=== PATIENT | male | born 1965 | race Caucasian/White ===

== ENCOUNTER 2017-07-18 09:33 | Emergency (ER) | payer MEDICAID ==
[~2017-07-18] VITALS: Ht 175.3 cm; Wt 80.0 kg
[~2017-07-18 09:33] MED LIST: ALBU8HFA PO; BACLOFEN 10 MG TABLET; BUTRANS 20 MCG/HR; CHLO375T PO; CYCL10TA27 PO; FINA5TAB42 PO; FINASTERIDE 5 MG TABLET; GABA800T2 PO; HYDR-569 PO; HYDROCODONE-ACETAMIN 10-325 MG; HYDROXYZINE HCL 25 MG TABLET; IBUPROFEN 800 MG TABLET; LAMO25TA PO; LAMOTRIGINE 100 MG TABLET; LEVE10006 PO; LEVO100T9 PO; LEVOTHYROXINE 125 MCG TABLET; PAROXETINE HCL 20 MG TABLET; SPIRIVA RESPIMAT 2.5 MCG; TAMS0.4C32 PO; TAMSULOSIN HCL 0.4 MG CAPSULE; VENTOLIN HFA 90 MCG INHALER
[2017-07-18] MEDS ORDERED: BENZ-16 PO (11:49)
[2017-07-18] MEDS ORDERED: ipratropium/albuterol 3ml nebule ONE (11:58)
[2017-07-18 12:46] VITALS: BP 125/74
== END 2017-07-18 12:47 | disposition home or self-care (01) ==
LOC: ER 09:33
DX: J45.909 Unspecified asthma, uncomplicated (principal); F12.10 Cannabis abuse, uncomplicated; Z88.8 Allergy status to other drugs, medicaments and biological substances; Z88.5 Allergy status to narcotic agent; Z79.899 Other long term (current) drug therapy
CPT/HCPCS: 71046; 94640; 94760; 99284

== ENCOUNTER 2018-05-04 05:51 | Emergency (ER) | payer MEDICAID ==
[~2018-05-04] VITALS: Ht 175.3 cm; Wt 75.0 kg
[~2018-05-04 05:51] MED LIST changes: +BENZ-16 PO; +HYDR-4383 PO; -HYDR-569 PO
[2018-05-04 05:53] VITALS: BP 136/79
[2018-05-04] MEDS ORDERED: HYDROcodone/acetaminophen 5mg/325mg tablet PO ONE (06:35)
[2018-05-04] MEDS ORDERED: ketorolac trometh inj. 60 MG/2 ML VIAL IM ONE (06:35)
[2018-05-04] MEDS ORDERED: HYDR-4383 PO (06:37)
[2018-05-04] MEDS ORDERED: AMOX-422 PO (06:37)
== END 2018-05-04 06:59 | disposition home or self-care (01) ==
LOC: ER 05:52
DX: H66.91 Otitis media, unspecified, right ear (principal); J45.909 Unspecified asthma, uncomplicated; N40.0 Benign prostatic hyperplasia without lower urinary tract symptoms; E07.9 Disorder of thyroid, unspecified; F12.10 Cannabis abuse, uncomplicated; Z87.891 Personal history of nicotine dependence; Z88.8 Allergy status to other drugs, medicaments and biological substances; Z88.5 Allergy status to narcotic agent; Z79.899 Other long term (current) drug therapy
CPT/HCPCS: 96372; 99283; J1885

== ENCOUNTER 2018-05-31 23:06 | Emergency (ER) | payer MEDICAID ==
[~2018-05-31] VITALS: Ht 172.7 cm; Wt 85.0 kg
[~2018-05-31 23:06] MED LIST changes: -GABA800T2 PO; +GABA800T3 PO
[2018-05-31] MEDS ORDERED: ipratropium/albuterol 3ml nebule NEB ONE (23:15)
[2018-05-31] MEDS ORDERED: normal saline 1000ML IV soln IVB ONE (23:15)
[2018-05-31] MEDS ORDERED: methylPREDNISolone sod succ 125mg/2ml vial IV ONE (23:15)
[2018-05-31 23:34] LABS: BASOPHILS # (AUTO) 0.1 X10'3 (0-0.2); BASOPHILS % (AUTO) 1.3 % (0-1); EOSINOPHILS # (AUTO) 0.4 X10'3 (0-0.9); EOSINOPHILS % (AUTO) 5.5 % (0-6); HEMATOCRIT 41.5 % (42.0-52.0); HEMOGLOBIN 13.3 g/dl (14.0-17.9); LYMPHOCYTES # (AUTO) 1.6 X10'3 (1.1-4.8); LYMPHOCYTES % (AUTO) 19.8 % (21-51); MEAN CORPUSCULAR HEMOGLOBIN 27.5 PG (27.0-31.0); MEAN CORPUSCULAR HGB CONC 32.1 % (33.0-36.5); MEAN CORPUSCULAR VOLUME 85.6 FL (78-98); MEAN PLATELET VOLUME 7.7 FL (7.4-10.4); MONOCYTES # (AUTO) 0.7 X10'3 (0-0.9); MONOCYTES % (AUTO) 9.2 % (2-12); NEUTROPHILS # (AUTO) 5.1 X10'3 (1.8-7.7); NEUTROPHILS % (AUTO) 64.2 % (42-75); PLATELET COUNT 298 X10'3 (140-440); RED BLOOD COUNT 4.85 X10'6 (4.70-6.10); RED CELL DISTRIBUTION WIDTH 15.1 % (11.5-14.5); WHITE BLOOD COUNT 7.9 X10'3 (4.5-11.0)
[2018-05-31] MEDS ORDERED: GUAI120015 PO (23:40)
[2018-05-31] MEDS ORDERED: ALBU6.7H INH (23:40)
[2018-05-31] MEDS ORDERED: PRED20TA PO (23:40)
[2018-05-31] MEDS ORDERED: AZIT250T2 PO (23:40)
[2018-05-31 23:48] LABS: ALANINE AMINOTRANSFERASE 21 U/L (12-78); ALBUMIN 3.7 G/DL (3.4-5.0); ALKALINE PHOSPHATASE 85 IU/L (46-116); ANION GAP 13 (8-16); ASPARTATE AMINO TRANSFERASE 17 U/L (10-37); BILIRUBIN,TOTAL 0.4 MG/DL (0.1-1.0); BLOOD UREA NITROGEN 16 MG/DL (7-18); BUN/CREATININE RATIO 16.3 (5.4-32.0); CALCIUM 8.6 MG/DL (8.5-10.1); CHLORIDE 104 MMOL/L (99-107); CREATININE 0.98 MG/DL (0.60-1.10); GLUCOSE 107 MG/DL (70-104); POTASSIUM 4.6 MMOL/L (3.5-5.1); SODIUM 141 MMOL/L (135-145); TOTAL CARBON DIOXIDE 24.5 MMOL/L (24-32); TOTAL PROTEIN 7.5 G/DL (6.4-8.2); eGFR 80 ML/MIN
[2018-05-31 23:52] VITALS: BP 116/76
== END 2018-06-01 00:04 | disposition home or self-care (01) ==
LOC: ER 23:07
DX: J20.9 Acute bronchitis, unspecified (principal); J45.909 Unspecified asthma, uncomplicated; F12.90 Cannabis use, unspecified, uncomplicated; Z98.890 Other specified postprocedural states; Z88.5 Allergy status to narcotic agent; Z88.6 Allergy status to analgesic agent; Z88.8 Allergy status to other drugs, medicaments and biological substances; Z79.899 Other long term (current) drug therapy
CPT/HCPCS: 36415; 71045; 80053; 85025; 94640; 94760; 96374; 99284; J2930; J7030

== ENCOUNTER 2018-10-31 18:59 | Emergency (ER) | payer MEDICAID ==
[~2018-10-31] VITALS: Ht 175.3 cm; Wt 75.0 kg
[~2018-10-31 18:59] MED LIST changes: +ALBU6.7H INH; +GABA800T11 PO; -GABA800T3 PO; +GUAI120015 PO; -LAMO25TA PO; +LAMO25TA5 PO
[2018-10-31] MEDS ORDERED: LORazepam 2 mg/ml vial IV ONE (19:30)
[2018-10-31 19:38] LABS: BASOPHILS % (AUTO) 0.6 % (0-1); EOSINOPHILS # (AUTO) 0.2 X10'3 (0-0.9); HEMATOCRIT 40.8 % (42.0-52.0); HEMOGLOBIN 13.5 g/dl (14.0-17.9); LYMPHOCYTES # (AUTO) 1.2 X10'3 (1.1-4.8); LYMPHOCYTES % (AUTO) 15.7 % (21-51); MEAN CORPUSCULAR HEMOGLOBIN 27.8 PG (27.0-31.0); MEAN CORPUSCULAR VOLUME 84.2 FL (78-98); MEAN PLATELET VOLUME 7.8 FL (7.4-10.4); MONOCYTES # (AUTO) 0.7 X10'3 (0-0.9); MONOCYTES % (AUTO) 9.5 % (2-12); NEUTROPHILS # (AUTO) 5.4 X10'3 (1.8-7.7); NEUTROPHILS % (AUTO) 71.2 % (42-75); PLATELET COUNT 271 X10'3 (140-440); RED BLOOD COUNT 4.84 X10'6 (4.70-6.10); RED CELL DISTRIBUTION WIDTH 14.5 % (11.5-14.5); WHITE BLOOD COUNT 7.5 X10'3 (4.5-11.0)
[2018-10-31 19:47] LABS: ALANINE AMINOTRANSFERASE 22 U/L (12-78); ALBUMIN 3.9 G/DL (3.4-5.0); ALKALINE PHOSPHATASE 81 IU/L (46-116); ANION GAP 8 (8-16); ASPARTATE AMINO TRANSFERASE 16 U/L (10-37); BILIRUBIN,TOTAL 0.3 MG/DL (0.1-1.0); BLOOD UREA NITROGEN 24 MG/DL (7-18); CALCIUM 9.1 MG/DL (8.5-10.1); CHLORIDE 105 MMOL/L (99-107); CREATININE 1.09 MG/DL (0.60-1.10); GLUCOSE 114 MG/DL (70-104); PARTIAL THROMBOPLASTIN TIME 32 SECONDS (22-32); POTASSIUM 4.8 MMOL/L (3.5-5.1); SODIUM 137 MMOL/L (135-145); TOTAL CARBON DIOXIDE 24.4 MMOL/L (24-32); TOTAL PROTEIN 7.8 G/DL (6.4-8.2); eGFR 71 ML/MIN
[2018-10-31 20:37] VITALS: BP 110/74
== END 2018-10-31 20:39 | disposition home or self-care (01) ==
LOC: ER 18:59
DX: R07.89 Other chest pain (principal); F15.929 Other stimulant use, unspecified with intoxication, unspecified; J45.909 Unspecified asthma, uncomplicated; F12.90 Cannabis use, unspecified, uncomplicated; Z98.890 Other specified postprocedural states; Z88.5 Allergy status to narcotic agent; Z88.8 Allergy status to other drugs, medicaments and biological substances; Z79.899 Other long term (current) drug therapy
CPT/HCPCS: 36415; 71045; 80053; 84484; 85025; 85610; 85730; 93005; 96374; 99284; J2060

== ENCOUNTER 2019-08-07 14:38 | Emergency (ER) | payer MEDICAID ==
[~2019-08-07] VITALS: Ht 177.8 cm; Wt 95.5 kg
[~2019-08-07 14:38] MED LIST changes: -ALBU6.7H INH; +ALBU6.7H9 INH
[2019-08-07 14:41] VITALS: BP 136/77
[2019-08-07] MEDS ORDERED: proparacaine 0.5% ophthalmic drops 15ml EACHEYE ONE (15:25)
== END 2019-08-07 16:17 | disposition home or self-care (01) ==
LOC: ER 14:38
DX: T15.11XA Foreign body in conjunctival sac, right eye, initial encounter (principal); J45.909 Unspecified asthma, uncomplicated; F12.90 Cannabis use, unspecified, uncomplicated; F15.90 Other stimulant use, unspecified, uncomplicated; Z86.69 Personal history of other diseases of the nervous system and sense organs; Z98.890 Other specified postprocedural states; Z88.6 Allergy status to analgesic agent; Z88.5 Allergy status to narcotic agent; Z79.899 Other long term (current) drug therapy; W22.8XXA Striking against or struck by other objects, initial encounter; Y93.89 Activity, other specified; Y92.89 Other specified places as the place of occurrence of the external cause; Y99.8 Other external cause status
CPT/HCPCS: 65205; 99284

== ENCOUNTER 2020-03-19 16:34 | Emergency (ER) | payer MEDICAID, OTHER ==
[~2020-03-19] VITALS: Ht 177.8 cm; Wt 97.7 kg
[2020-03-19] MEDS ORDERED: normal saline 1000ML IV soln IVB ONE (16:50)
[2020-03-19] MEDS ORDERED: levetiracetam-NS 1000mg/100ml 100 ML IV STA (16:58)
[2020-03-19] MEDS ORDERED: LORazepam 2 mg/ml vial IV ONE (17:00)
[2020-03-19] MEDS ORDERED: magnesium 2GM in 50ml NS 50 ML IV ONE (17:00)
[2020-03-19 17:30] LABS: BASOPHILS # (AUTO) 0.1 X10'3 (0-0.2); EOSINOPHILS # (AUTO) 0.2 X10'3 (0-0.9); HEMOGLOBIN 13.3 g/dl (14.0-17.9); MEAN CORPUSCULAR HGB CONC 32.8 g/dL (33.0-36.5); MEAN PLATELET VOLUME 7.3 FL (7.4-10.4); MONOCYTES # (AUTO) 0.8 X10'3 (0-0.9)
[2020-03-19 17:31] LABS: BASOPHILS % (AUTO) 0.9 % (0-1); EOSINOPHILS % (AUTO) 2.4 % (0-6); HEMATOCRIT 40.5 % (42.0-52.0); LYMPHOCYTES # (AUTO) 1.6 X10'3 (1.1-4.8); LYMPHOCYTES % (AUTO) 16.9 % (21-51); MEAN CORPUSCULAR HEMOGLOBIN 28.3 PG (27.0-31.0); MEAN CORPUSCULAR VOLUME 86.1 FL (78-98); MONOCYTES % (AUTO) 9.1 % (2-12); NEUTROPHILS # (AUTO) 6.5 X10'3 (1.8-7.7); NEUTROPHILS % (AUTO) 70.7 % (42-75); PLATELET COUNT 362 X10'3 (140-440); RED BLOOD COUNT 4.71 X10'6 (4.70-6.10); RED CELL DISTRIBUTION WIDTH 14.8 % (11.5-14.5); WHITE BLOOD COUNT 9.2 X10'3 (4.5-11.0)
[2020-03-19 17:48] LABS: ALANINE AMINOTRANSFERASE 27 U/L (12-78); ALBUMIN/GLOBULIN RATIO 0.8 (1.1-1.5); ALKALINE PHOSPHATASE 60 IU/L (46-116); ANION GAP 13 (8-16); ASPARTATE AMINO TRANSFERASE 18 U/L (10-37); BILIRUBIN,TOTAL 0.2 MG/DL (0.1-1.0); BLOOD UREA NITROGEN 15 MG/DL (7-18); BUN/CREATININE RATIO 16.3 (5.4-32.0); CALCIUM 8.2 MG/DL (8.5-10.1); CHLORIDE 107 MMOL/L (99-107); CREATININE 0.92 MG/DL (0.60-1.10); GLUCOSE 114 MG/DL (70-104); POTASSIUM 3.7 MMOL/L (3.5-5.1); SODIUM 141 MMOL/L (135-145); TOTAL CARBON DIOXIDE 21.5 MMOL/L (24-32); TOTAL PROTEIN 6.6 G/DL (6.4-8.2); eGFR 86 ML/MIN
[2020-03-19 17:50] LABS: CREATINE KINASE 64 U/L (39-308); ETHANOL < 0.010 GM/DL (0.0-0.010)
[2020-03-19 18:17] LABS: CLARITY,URINE SLIGHTLY CLOUDY (Clear); COLOR,URINE YELLOW (Yellow); GLUCOSE, URINE NEGATIVE (Neg); KETONES,URINE NEGATIVE (Neg); LEUKOCYTE ESTERASE ,URINE NEGATIVE (Neg); NITRITES, URINE NEGATIVE (Neg); OCCULT BLOOD,URINE NEGATIVE (Neg); PH,URINE 5.5 (4.8-8.0); PROTEIN,URINE NEGATIVE (Neg); UROBILINOGEN,URINE 0.2 E.U/dL (0.2-1.0)
[2020-03-19 18:19] LABS: UA COLLECTION TYPE CLN CATCH MIDSTREAM
[2020-03-19 18:20] LABS: URINE AMPHETAMINE SCREEN NEGATIVE (Neg); URINE BARBITUATE SCREEN NEGATIVE (Neg); URINE BENZODIAZEPINES SCREEN NEGATIVE (Neg); URINE CANNABINOID SCREEN POSITIVE (Neg); URINE COCAINE SCREEN NEGATIVE (Neg); URINE METHADONE SCREEN NEGATIVE (Neg); URINE OPIATE SCREEN NEGATIVE (Neg); URINE PHENCYCLIDINE SCREEN NEGATIVE (Neg)
[2020-03-19 18:27] LABS: SQUAMOUS EPITHELIAL CELL,UR FEW /LPF (FEW); TRANSITIONAL EPI CELLS,URINE FEW /HPF
[2020-03-19 18:28] LABS: BACTERIA,URINE NONE SEEN /HPF (Neg); RBC,URINE NONE SEEN /HPF (0-2); WBC,URINE NONE SEEN /HPF (0-4)
[2020-03-19 18:34] LABS: PLATELET ESTIMATE NORMAL; TOTAL CELLS COUNTED 200
--- NOTE | 2020-03-19 18:34 | NUR ---
pt finishing the mg infusion. Once completed will be prepared for Dc
[2020-03-19 18:36] LABS: HYPOCHROMASIA 1+; STOMATOCYTES FEW
[2020-03-19] MEDS ORDERED: ketorolac trometh. 30mg/ml inj. IV ONE (19:05)
--- NOTE | 2020-03-19 19:19 | NUR ---
pt reported to me that he would take an Uber or Lyft to get home. He now states he was wrong and will need assistance to get to his daughters house in [place]. Pt to receive hospital pay taxi ride home now.
== END 2020-03-19 19:26 | disposition home or self-care (01) ==
LOC: ER 16:35
DX: R56.9 Unspecified convulsions (principal); Z85.841 Personal history of malignant neoplasm of brain; Z88.5 Allergy status to narcotic agent; Z88.8 Allergy status to other drugs, medicaments and biological substances; Z79.899 Other long term (current) drug therapy
CPT/HCPCS: 36415; 70450; 71045; 80053; 80305; 80320; 81001; 82542; 82550; 85007; 85025; 93005; 96365; 96366; 96367; 96368; 96375; 99285; J1885; J1953; J2060; J3475; J7030

== ENCOUNTER 2020-03-20 08:23 | Emergency (ER) | payer OTHER ==
[~2020-03-20] VITALS: Ht 177.8 cm; Wt 113.6 kg
--- NOTE | 2020-03-20 09:06 | NUR ---
PATIENT UP TO RESTROOM AT THIS TIME, GAIT STEADY, BALANCED, NO SIGNS OF DISTRESS NOTED.
[2020-03-20] MEDS ORDERED: ketorolac tromethamine 15mg/ml inj. IM ONE (09:25)
[2020-03-20] MEDS ORDERED: LORazepam 2 mg/ml vial IV ONE (09:25)
[2020-03-20 10:37] VITALS: BP 116/70
== END 2020-03-20 10:41 | disposition home or self-care (01) ==
LOC: ER 08:24
DX: R56.9 Unspecified convulsions (principal); R51.9 Headache, unspecified; J45.909 Unspecified asthma, uncomplicated; F12.90 Cannabis use, unspecified, uncomplicated; F15.90 Other stimulant use, unspecified, uncomplicated; Z86.69 Personal history of other diseases of the nervous system and sense organs; Z98.890 Other specified postprocedural states; Z88.6 Allergy status to analgesic agent; Z88.5 Allergy status to narcotic agent; Z88.8 Allergy status to other drugs, medicaments and biological substances; Z79.899 Other long term (current) drug therapy
CPT/HCPCS: 82948; 96372; 96374; 99284; J1885; J2060

== ENCOUNTER 2020-04-01 11:25 | Emergency (ER) | payer MEDICAID, OTHER ==
[~2020-04-01] VITALS: Ht 177.8 cm; Wt 90.9 kg
[2020-04-01] MEDS ORDERED: normal saline 1000ML IV soln IV ONE (11:45)
[2020-04-01 12:12] LABS: BASOPHILS # (AUTO) 0.1 X10'3 (0-0.2); BASOPHILS % (AUTO) 1.1 % (0-1); EOSINOPHILS # (AUTO) 0.4 X10'3 (0-0.9); EOSINOPHILS % (AUTO) 5.3 % (0-6); LYMPHOCYTES # (AUTO) 1.9 X10'3 (1.1-4.8); LYMPHOCYTES % (AUTO) 24.9 % (21-51); MEAN CORPUSCULAR HEMOGLOBIN 28.2 PG (27.0-31.0); MEAN CORPUSCULAR HGB CONC 32.5 g/dL (33.0-36.5); MEAN CORPUSCULAR VOLUME 86.6 FL (78-98); MEAN PLATELET VOLUME 7.4 FL (7.4-10.4); MONOCYTES # (AUTO) 0.8 X10'3 (0-0.9); MONOCYTES % (AUTO) 10.4 % (2-12); NEUTROPHILS # (AUTO) 4.5 X10'3 (1.8-7.7); NEUTROPHILS % (AUTO) 58.3 % (42-75); PLATELET COUNT 342 X10'3 (140-440); RED BLOOD COUNT 4.62 X10'6 (4.70-6.10); RED CELL DISTRIBUTION WIDTH 15.3 % (11.5-14.5); WHITE BLOOD COUNT 7.8 X10'3 (4.5-11.0)
[2020-04-01 12:27] LABS: ALANINE AMINOTRANSFERASE 17 U/L (12-78); ALBUMIN 3.3 G/DL (3.4-5.0); ALBUMIN/GLOBULIN RATIO 0.9 (1.1-1.5); ALKALINE PHOSPHATASE 74 IU/L (46-116); ANION GAP 5 (8-16); ASPARTATE AMINO TRANSFERASE 12 U/L (10-37); BILIRUBIN,TOTAL 0.2 MG/DL (0.1-1.0); BLOOD UREA NITROGEN 18 MG/DL (7-18); BUN/CREATININE RATIO 18.2 (5.4-32.0); CALCIUM 8.2 MG/DL (8.5-10.1); CHLORIDE 107 MMOL/L (99-107); CREATININE 0.99 MG/DL (0.60-1.10); GLUCOSE 96 MG/DL (70-104); MAGNESIUM 1.9 MG/DL (1.5-2.4); SODIUM 137 MMOL/L (135-145); TOTAL PROTEIN 6.8 G/DL (6.4-8.2); eGFR 79 ML/MIN
[2020-04-01 12:29] LABS: ETHANOL < 0.010 GM/DL (0.0-0.010)
[2020-04-01 12:29] LABS: CLARITY,URINE CLEAR (Clear); COLOR,URINE YELLOW (Yellow); GLUCOSE, URINE NEGATIVE (Neg); KETONES,URINE NEGATIVE (Neg); LEUKOCYTE ESTERASE ,URINE NEGATIVE (Neg); NITRITES, URINE NEGATIVE (Neg); OCCULT BLOOD,URINE NEGATIVE (Neg); PROTEIN,URINE NEGATIVE (Neg); UROBILINOGEN,URINE 0.2 E.U/dL (0.2-1.0)
[2020-04-01 12:32] LABS: UA COLLECTION TYPE CLN CATCH MIDSTREAM
[2020-04-01 12:37] LABS: URINE AMPHETAMINE SCREEN NEGATIVE (Neg); URINE BARBITUATE SCREEN NEGATIVE (Neg); URINE BENZODIAZEPINES SCREEN NEGATIVE (Neg); URINE CANNABINOID SCREEN POSITIVE (Neg); URINE COCAINE SCREEN NEGATIVE (Neg); URINE METHADONE SCREEN NEGATIVE (Neg); URINE OPIATE SCREEN NEGATIVE (Neg); URINE PHENCYCLIDINE SCREEN NEGATIVE (Neg)
[2020-04-01] MEDS ORDERED: ipratropium/albuterol 3ml nebule NEB ONE (13:15)
[2020-04-01 13:17] VITALS: BP 119/67
--- NOTE | 2020-04-01 13:35 | NUR ---
RECEIVED PHONE REPORT FROM KYLER TSE.
--- NOTE | 2020-04-01 13:54 | NUR ---
PT BROUGHT OVER TO ROOM 25, CHANGED INTO GREEN SCRUBS AND BELONGINGS PLACE IN BELONGINGS BAG, MEDICATIONS INVENTORIED FOR PHARMACY. PT HAS A BONG, MJ PIPE, AND CANIBUS. SECURITY NOTIFIED.
--- NOTE | 2020-04-01 14:45 | NUR ---
[facility] CLINICIAN IN TO EVAL PT. SECURITY GIVEN PT'S BAG OF MARIJUANA. PT SIGNS THAT IT IS OK FOR THEM TO DISPOSE OF IT.
[2020-04-01] MEDS ORDERED: TRAZ-256 PO (14:48)
[2020-04-01] MEDS ORDERED: LAMO100T2 PO (14:48)
[2020-04-01] MEDS ORDERED: BACL-11 PO (14:48)
[2020-04-01] MEDS ORDERED: TIOT4MIS5 (14:48)
[2020-04-01] MEDS ORDERED: FLO0.4C PO (14:48)
[2020-04-01] MEDS ORDERED: DICL-343 PO (14:48)
[2020-04-01] MEDS ORDERED: PARO20TA6 PO (14:48)
[2020-04-01] MEDS ORDERED: LEVO125T8 PO (14:48)
[2020-04-01] MEDS ORDERED: TIOT4MIS5 INH (14:58)
--- NOTE | 2020-04-01 15:25 | NUR ---
Break RN note:patient on bed.No noted behavior change.We will monitor.
--- NOTE | 2020-04-01 15:59 | NUR ---
PER THE [facility] CLINITIAN PT WILL BE DISCHARGED TO F/U WITH [facility].
--- NOTE | 2020-04-01 16:57 | NUR ---
PT IS GIVEN HIS BELONGINGS. SECURITY IS CALLED FOR ESCORT. [facility]AX[facility] IS CALLED FOR RIDE TO [facility].
== END 2020-04-01 17:01 | disposition home or self-care (01) ==
LOC: ER 11:25
DX: R45.851 Suicidal ideations (principal); J44.9 Chronic obstructive pulmonary disease, unspecified; E07.9 Disorder of thyroid, unspecified; N40.0 Benign prostatic hyperplasia without lower urinary tract symptoms; Z88.8 Allergy status to other drugs, medicaments and biological substances; Z88.5 Allergy status to narcotic agent; Z79.899 Other long term (current) drug therapy; F12.10 Cannabis abuse, uncomplicated; F15.10 Other stimulant abuse, uncomplicated
CPT/HCPCS: 36415; 71045; 80053; 80305; 80320; 81003; 83605; 83735; 84145; 85025; 87040; 87077; 87186; 87635; 93005; 94640; 96360; 96361; 99285; C9803; J7030; 94760

== ENCOUNTER 2020-04-06 04:45 | Emergency (ER) | payer MEDICAID ==
[~2020-04-06] VITALS: Ht 177.8 cm; Wt 95.5 kg
[~2020-04-06 04:45] MED LIST changes: -ALBU6.7H9 INH; -ALBU8HFA PO; +BACL-11 PO; -BACLOFEN 10 MG TABLET; -BENZ-16 PO; -BUTRANS 20 MCG/HR; -CHLO375T PO; -CYCL10TA27 PO; +DICL-343 PO; -FINA5TAB42 PO; -FINASTERIDE 5 MG TABLET; +FLO0.4C PO; -GABA800T11 PO; -GUAI120015 PO; -HYDR-4383 PO; -HYDROCODONE-ACETAMIN 10-325 MG; -HYDROXYZINE HCL 25 MG TABLET; -IBUPROFEN 800 MG TABLET; +LAMO100T2 PO; -LAMO25TA5 PO; -LAMOTRIGINE 100 MG TABLET; -LEVE10006 PO; -LEVO100T9 PO; +LEVO125T8 PO; -LEVOTHYROXINE 125 MCG TABLET; +PARO20TA6 PO; -PAROXETINE HCL 20 MG TABLET; -SPIRIVA RESPIMAT 2.5 MCG; -TAMS0.4C32 PO; -TAMSULOSIN HCL 0.4 MG CAPSULE; +TIOT4MIS5; +TIOT4MIS5 INH; +TRAZ-256 PO; -VENTOLIN HFA 90 MCG INHALER
[2020-04-06 04:49] VITALS: BP 139/69
[2020-04-06] MEDS ORDERED: predniSONE 20 mg tablet PO ONE (05:15)
[2020-04-06] MEDS ORDERED: PRED20TA PO (05:29)
== END 2020-04-06 05:40 | disposition home or self-care (01) ==
LOC: ER 04:46
DX: J44.9 Chronic obstructive pulmonary disease, unspecified (principal); R05 Cough; R06.2 Wheezing; R06.02 Shortness of breath; F12.90 Cannabis use, unspecified, uncomplicated; F15.90 Other stimulant use, unspecified, uncomplicated; Z86.69 Personal history of other diseases of the nervous system and sense organs; Z98.890 Other specified postprocedural states; Z88.5 Allergy status to narcotic agent; Z88.8 Allergy status to other drugs, medicaments and biological substances; Z79.899 Other long term (current) drug therapy
CPT/HCPCS: 71045; 93005; 99283; J7512

== ENCOUNTER 2020-04-12 14:02 | Emergency (ER) | payer MEDICAID ==
[~2020-04-12] VITALS: Ht 177.8 cm; Wt 99.6 kg
[~2020-04-12 14:02] MED LIST changes: +PRED20TA PO
[2020-04-12] MEDS ORDERED: morphine 4 MG/ML inj SYRINge IV ONE ×2 (16:05→20:25)
[2020-04-12] MEDS ORDERED: albuterol 2.5 MG/3 ML nebule CONTNEB PRN (16:10)
[2020-04-12] MEDS ORDERED: iohexol 350MG/ML 100ml bottle IV ONE (16:18)
[2020-04-12 17:38] LABS: BASOPHILS # (AUTO) 0.1 X10'3 (0-0.2); BASOPHILS % (AUTO) 0.4 % (0-1); EOSINOPHILS # (AUTO) 0.1 X10'3 (0-0.9); EOSINOPHILS % (AUTO) 0.6 % (0-6); HEMATOCRIT 38.6 % (42.0-52.0); HEMOGLOBIN 12.2 g/dl (14.0-17.9); LYMPHOCYTES # (AUTO) 2.2 X10'3 (1.1-4.8); MEAN CORPUSCULAR HEMOGLOBIN 27.5 PG (27.0-31.0); MEAN CORPUSCULAR HGB CONC 31.7 g/dL (33.0-36.5); MEAN CORPUSCULAR VOLUME 86.7 FL (78-98); MEAN PLATELET VOLUME 8.3 FL (7.4-10.4); MONOCYTES # (AUTO) 1.6 X10'3 (0-0.9); MONOCYTES % (AUTO) 8.6 % (2-12); NEUTROPHILS # (AUTO) 14.1 X10'3 (1.8-7.7); NEUTROPHILS % (AUTO) 78.4 % (42-75); PLATELET COUNT 355 X10'3 (140-440); RED BLOOD COUNT 4.45 X10'6 (4.70-6.10); RED CELL DISTRIBUTION WIDTH 15.6 % (11.5-14.5)
--- NOTE | 2020-04-12 18:20 | NUR ---
notified dr saez regarding pt symptoms as per md he is going to order a cta .provider at pt bedside .
[2020-04-12] MEDS ORDERED: CefTRIAXone 1000mg inj IV STA (19:49)
[2020-04-12] MEDS ORDERED: azithromycin/NS 500mg/250ml 250 ML IV ONE (19:50)
[2020-04-12] MEDS ORDERED: CefTRIAXone 1000mg IM Kit (w/lidocaine diluent) IM ONE (20:00)
[2020-04-12] MEDS ORDERED: benzonatate 100mg capsule PO ONE (20:25)
[2020-04-12] MEDS ORDERED: HYDROcodone/acetaminophen 5mg/325mg tablet PO PRN (20:35)
[2020-04-12] MEDS ORDERED: magnesium hydroxide 30ml (MOM) UD suspension PO PRN (20:35)
[2020-04-12] MEDS ORDERED: ondansetron/PF 4mg/2ml inj IV PRN (20:35)
[2020-04-12] MEDS ORDERED: mag hydrox/Alum hydrox/simeth 30ml oral suspension PO PRN (20:35)
[2020-04-12] MEDS ORDERED: morphine 2 MG/ML inj. syringe IV PRN ×2 (20:35)
[2020-04-12] MEDS ORDERED: HYDROcodone/acetaminophen 10/325mg tab PO PRN (20:35)
[2020-04-12] MEDS ORDERED: acetaminophen 325mg tablet PO PRN ×2 (20:35)
[2020-04-12] MEDS ORDERED: VANCOmycin 1250MG/NS 250ml Bag 250 ML IV SCH (21:00)
[2020-04-12] MEDS ORDERED: BUPR1PAT2 TD (22:01)
[2020-04-12] MEDS ORDERED: ALBU8.5H8 INH (22:01)
[2020-04-12 22:02] VITALS: BP 120/66
--- NOTE | 2020-04-12 23:11 | NUR ---
Pt. expressing that he wants to go home. He states that he has "stuff/work to do" at home. Pt. educated on risk of leaving AMA and foregoing tx. plan for dx. Admitting hospitalist made aware. Dr. Boggs to see the pt. soon.
--- NOTE | 2020-04-12 23:14 | NUR ---
Per Dr. Boggs, pt. ok to leave if he chooses to.
--- NOTE | 2020-04-12 23:20 | NUR ---
Pt. states that he "needs to take care of something." He said that he has belongings that he needs to remove from his motel room that he fears might get lost/stolen. He is insisting to leave in spite of education re risk. aware. All access lines removed prior to pt. leaving.
[2020-04-13] MEDS ORDERED: levoFLOXACIN-Levaquin 750MG/D5 150 ML IV SCH (08:00)
[2020-04-13] MEDS ORDERED: vancomycin/NS 1 GM ADD-VANTAGE 250 ML IV SCH (08:00)
== END 2020-04-12 23:20 | disposition left against medical advice (07) ==
LOC: ER 14:04 → ED HOLD 20:31 → UNDOADMIN 20:31 → ER 23:20 → UNDODISIN 23:25
DX: S27.52XA Contusion of thoracic trachea, initial encounter (principal); J18.9 Pneumonia, unspecified organism; R06.02 Shortness of breath; R05 Cough; R09.89 Other specified symptoms and signs involving the circulatory and respiratory systems; Z20.828 Contact with and (suspected) exposure to other viral communicable diseases; J45.909 Unspecified asthma, uncomplicated; F12.90 Cannabis use, unspecified, uncomplicated; F15.90 Other stimulant use, unspecified, uncomplicated; Z86.69 Personal history of other diseases of the nervous system and sense organs; Z98.890 Other specified postprocedural states; Z88.5 Allergy status to narcotic agent; Z88.8 Allergy status to other drugs, medicaments and biological substances; Z79.899 Other long term (current) drug therapy; X58.XXXA Exposure to other specified factors, initial encounter; Y93.89 Activity, other specified; Y92.89 Other specified places as the place of occurrence of the external cause; Y99.8 Other external cause status
CPT/HCPCS: 36415; 71045; 71275; 83880; 84484; 85025; 85610; 87635; 93005; 94644; 96365; 96366; 96368; 96372; 96375; 96376; 99285; C9803; J0456; J0696; J2270; J3370; Q9967; 94640; A7015; G0378

== ENCOUNTER 2020-04-18 07:32 | Emergency (ER) | payer MEDICAID ==
[~2020-04-18] VITALS: Ht 177.8 cm; Wt 90.0 kg
[~2020-04-18 07:32] MED LIST changes: +ALBU8.5H8 INH; +BUPR1PAT2 TD; -PRED20TA PO; -TIOT4MIS5
[2020-04-18] MEDS ORDERED: acetaminophen 325mg tablet PO STA (07:51)
[2020-04-18] MEDS ORDERED: levoFLOXACIN-Levaquin 750MG/D5 150 ML IV ONE (07:55)
[2020-04-18] MEDS ORDERED: normal saline 1000ML IV soln IV ONE (07:55)
[2020-04-18] MEDS ORDERED: vancomycin/NS 1 GM ADD-VANTAGE 250 ML IV ONE (07:55)
[2020-04-18 08:41] LABS: BASOPHILS # (AUTO) 0.1 X10'3 (0-0.2); BASOPHILS % (AUTO) 0.6 % (0-1); EOSINOPHILS # (AUTO) 0.3 X10'3 (0-0.9); EOSINOPHILS % (AUTO) 2.3 % (0-6); HEMOGLOBIN 9.8 g/dl (14.0-17.9); LYMPHOCYTES # (AUTO) 1.6 X10'3 (1.1-4.8); LYMPHOCYTES % (AUTO) 12.2 % (21-51); MEAN CORPUSCULAR HEMOGLOBIN 27.9 PG (27.0-31.0); MEAN CORPUSCULAR HGB CONC 32.5 g/dL (33.0-36.5); MEAN CORPUSCULAR VOLUME 85.8 FL (78-98); MEAN PLATELET VOLUME 7.4 FL (7.4-10.4); MONOCYTES # (AUTO) 1.1 X10'3 (0-0.9); MONOCYTES % (AUTO) 8.8 % (2-12); NEUTROPHILS # (AUTO) 9.7 X10'3 (1.8-7.7); NEUTROPHILS % (AUTO) 76.1 % (42-75); PLATELET COUNT 417 X10'3 (140-440); RED BLOOD COUNT 3.49 X10'6 (4.70-6.10); RED CELL DISTRIBUTION WIDTH 14.7 % (11.5-14.5); WHITE BLOOD COUNT 12.8 X10'3 (4.5-11.0)
[2020-04-18 08:57] LABS: CLARITY,URINE CLEAR (Clear); GLUCOSE, URINE NEGATIVE (Neg); KETONES,URINE NEGATIVE (Neg); LEUKOCYTE ESTERASE ,URINE NEGATIVE (Neg); NITRITES, URINE NEGATIVE (Neg); OCCULT BLOOD,URINE NEGATIVE (Neg); PH,URINE 6.5 (4.8-8.0); PROTEIN,URINE NEGATIVE (Neg)
[2020-04-18 09:02] LABS: COLOR,URINE DARK YELLOW (Yellow); UA COLLECTION TYPE CLN CATCH MIDSTREAM
[2020-04-18 09:04] LABS: ALANINE AMINOTRANSFERASE 18 U/L (12-78); ALBUMIN 3.3 G/DL (3.4-5.0); ALBUMIN/GLOBULIN RATIO 0.9 (1.1-1.5); ALKALINE PHOSPHATASE 51 IU/L (46-116); ANION GAP 9 (8-16); ASPARTATE AMINO TRANSFERASE 17 U/L (10-37); BILIRUBIN,TOTAL 0.6 MG/DL (0.1-1.0); BLOOD UREA NITROGEN 19 MG/DL (7-18); BUN/CREATININE RATIO 18.1 (5.4-32.0); CALCIUM 8.7 MG/DL (8.5-10.1); CHLORIDE 108 MMOL/L (99-107); CREATININE 1.05 MG/DL (0.60-1.10); GLUCOSE 125 MG/DL (70-104); MAGNESIUM 2.1 MG/DL (1.5-2.4); POTASSIUM 4.1 MMOL/L (3.5-5.1); SODIUM 141 MMOL/L (135-145); eGFR 74 ML/MIN
[2020-04-18] MEDS ORDERED: ondansetron/PF 4mg/2ml inj IV ONE (09:05)
[2020-04-18] MEDS ORDERED: morphine 4 MG/ML inj SYRINge IV PRN (09:05)
[2020-04-18] MEDS ORDERED: iohexol 350MG/ML 100ml bottle IV ONE (09:11)
[2020-04-18] MEDS ORDERED: HYDR-4384 PO (10:27)
--- NOTE | 2020-04-18 12:32 | NUR ---
PAGED SW.PATIENT DOESNT HAVE TRANSPORT AND IS STILL PENDING COVID RESULT.
[2020-04-18 12:34] VITALS: BP 113/55
--- NOTE | 2020-04-18 13:49 | NUR ---
CALLED [facility] 30 MIN.
== END 2020-04-18 14:37 | disposition home or self-care (01) ==
LOC: ER 07:33
DX: S20.211A Contusion of right front wall of thorax, initial encounter (principal); R04.2 Hemoptysis; J45.909 Unspecified asthma, uncomplicated; Z86.69 Personal history of other diseases of the nervous system and sense organs; Z87.891 Personal history of nicotine dependence; Z88.5 Allergy status to narcotic agent; Z88.8 Allergy status to other drugs, medicaments and biological substances; Z79.899 Other long term (current) drug therapy; X58.XXXA Exposure to other specified factors, initial encounter; Y93.89 Activity, other specified; Y92.89 Other specified places as the place of occurrence of the external cause; Y99.8 Other external cause status
CPT/HCPCS: 36415; 71045; 71275; 80053; 81003; 83605; 83735; 84145; 85025; 87040; 93005; 96365; 96366; 96368; 96375; 99285; J1956; J2270; J2405; J3370; J7030; Q9967

== ENCOUNTER 2020-04-28 18:17 | Emergency (ER) | payer MEDICAID ==
[~2020-04-28] VITALS: Ht 177.8 cm; Wt 90.9 kg
[2020-04-28] MEDS ORDERED: dexamethasone 4mg tablet PO ONE (21:05)
[2020-04-28] MEDS ORDERED: ipratropium/albuterol 3ml nebule NEB ONE (21:05)
[2020-04-28] MEDS ORDERED: DOXYCYCLINE 100MG CAPSULE PO SCH (21:10)
[2020-04-28] MEDS ORDERED: DOXYCYCLINE 100MG CAPSULE PO ONE (21:10)
[2020-04-28 21:30] LABS: CLARITY,URINE CLOUDY (Clear); COLOR,URINE YELLOW (Yellow); GLUCOSE, URINE NEGATIVE (Neg); KETONES,URINE TRACE mg/dl (Neg); LEUKOCYTE ESTERASE ,URINE NEGATIVE (Neg); NITRITES, URINE NEGATIVE (Neg); OCCULT BLOOD,URINE LARGE (Neg); PH,URINE 5.5 (4.8-8.0); PROTEIN,URINE 100 mg/dl (Neg)
[2020-04-28 21:38] LABS: BASOPHILS # (AUTO) 0.1 X10'3 (0-0.2); HEMOGLOBIN 12.4 g/dl (14.0-17.9); MEAN CORPUSCULAR HEMOGLOBIN 29.5 PG (27.0-31.0); MONOCYTES # (AUTO) 1.2 X10'3 (0-0.9)
[2020-04-28 21:39] LABS: BASOPHILS % (AUTO) 1.4 % (0-1); EOSINOPHILS # (AUTO) 0.4 X10'3 (0-0.9); EOSINOPHILS % (AUTO) 3.4 % (0-6); HEMATOCRIT 37.2 % (42.0-52.0); LYMPHOCYTES # (AUTO) 1.4 X10'3 (1.1-4.8); LYMPHOCYTES % (AUTO) 13.6 % (21-51); MEAN CORPUSCULAR HGB CONC 33.3 g/dL (33.0-36.5); MEAN CORPUSCULAR VOLUME 88.5 FL (78-98); MEAN PLATELET VOLUME 8.2 FL (7.4-10.4); MONOCYTES % (AUTO) 11.3 % (2-12); NEUTROPHILS # (AUTO) 7.4 X10'3 (1.8-7.7); NEUTROPHILS % (AUTO) 70.3 % (42-75); PLATELET COUNT 391 X10'3 (140-440); WHITE BLOOD COUNT 10.5 X10'3 (4.5-11.0)
[2020-04-28 21:40] LABS: ALANINE AMINOTRANSFERASE 29 U/L (12-78); ALBUMIN 4.6 G/DL (3.4-5.0); ALBUMIN/GLOBULIN RATIO 1.3 (1.1-1.5); ALKALINE PHOSPHATASE 76 IU/L (46-116); ANION GAP 12 (8-16); BILIRUBIN,TOTAL 1.8 MG/DL (0.1-1.0); BLOOD UREA NITROGEN 38 MG/DL (7-18); CHLORIDE 106 MMOL/L (99-107); CREATININE 1.65 MG/DL (0.60-1.10); GLUCOSE 97 MG/DL (70-104); SODIUM 138 MMOL/L (135-145); TOTAL CARBON DIOXIDE 19.9 MMOL/L (24-32); TOTAL PROTEIN 8.1 G/DL (6.4-8.2); eGFR 44 ML/MIN
[2020-04-28 21:42] LABS: UA COLLECTION TYPE CLN CATCH MIDSTREAM
[2020-04-28 21:43] LABS: BACTERIA,URINE FEW /HPF (Neg); CAL OXALATE CRYSTALS FEW /HPF (NEGATIVE); MUCUS STRANDS FEW /LPF (Neg); RBC,URINE 20-50 /HPF (0-2); SQUAMOUS EPITHELIAL CELL,UR FEW /LPF (FEW); WBC,URINE 0-4 /HPF (0-4)
[2020-04-28 21:50] LABS: URINE AMPHETAMINE SCREEN POSITIVE (Neg); URINE BARBITUATE SCREEN NEGATIVE (Neg); URINE BENZODIAZEPINES SCREEN NEGATIVE (Neg); URINE CANNABINOID SCREEN POSITIVE (Neg); URINE COCAINE SCREEN NEGATIVE (Neg); URINE METHADONE SCREEN NEGATIVE (Neg); URINE OPIATE SCREEN NEGATIVE (Neg); URINE PHENCYCLIDINE SCREEN NEGATIVE (Neg)
[2020-04-28 21:50] LABS: ETHANOL < 0.010 GM/DL (0.0-0.010)
[2020-04-28 21:57] LABS: ASPARTATE AMINO TRANSFERASE 60 U/L (10-37)
--- NOTE | 2020-04-28 23:00 | NUR ---
Pt transferred from main ED. Report obtained through DEDRICK Manning and reading of pt's file. Pt experiencing COPD exacerbation and SI. 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 Pt states he was in custodial for burglary prior to becoming homeless. He states he has a cousin who lives in [place] whom he has roomed with in the past, but they do not have a solid connection and feels as though he has no support network. Pt is cooperative with admit process. He is linear in thought and exhibits a flat affect. Eye contact is good. Pt fell asleep soon after assessment and contionues to have an intermittent, non-productive, strong cough.
[2020-04-28] MEDS ORDERED: MELA1TAB28 PO (23:19)
[2020-04-28] MEDS ORDERED: ACET500C5 PO (23:19)
[2020-04-28] MEDS ORDERED: NAPR-56 PO (23:19)
[2020-04-28] MEDS ORDERED: acetaminophen 325mg tablet PO PRN (23:35)
[2020-04-28] MEDS ORDERED: naproxen 500mg tablet PO PRN (23:35)
[2020-04-28] MEDS ORDERED: albuterol 2.5 MG/3 ML nebule NEB PRN (23:50)
--- NOTE | 2020-04-29 02:07 | NUR ---
Pt sleeping well, coughing and snoring less frequently. Will continue to monitor.
--- NOTE | 2020-04-29 05:25 | NUR ---
Pt sleeping, occasionally wakes from a coughing fit but then falls back asleep.
[2020-04-29 05:59] VITALS: BP 118/73
[2020-04-29] MEDS ORDERED: budesonide 0.5mg/2ml UD nebule IH SCH (08:00)
[2020-04-29] MEDS ORDERED: levoTHYROXINE 125mcg tablet PO SCH (08:00)
[2020-04-29] MEDS ORDERED: PARoxetine 20mg tablet PO SCH (08:00)
--- NOTE | 2020-04-29 09:45 | NUR ---
PATIENT INTERVIEWED PER [facility] WORKER. PATIENT WILL BE DC THIS MORNING.
[2020-04-29] MEDS ORDERED: traZODone 50mg tablet PO SCH (21:00)
[2020-04-29] MEDS ORDERED: Melatonin 3mg tablet PO SCH (21:00)
== END 2020-04-29 10:41 | disposition home or self-care (01) ==
LOC: ER 18:17
DX: R45.851 Suicidal ideations (principal); J44.1 Chronic obstructive pulmonary disease with (acute) exacerbation; F15.10 Other stimulant abuse, uncomplicated; Z20.828 Contact with and (suspected) exposure to other viral communicable diseases
CPT/HCPCS: 36415; 71045; 80053; 80305; 80320; 81001; 84443; 85025; 87635; 94640; 99285; C9803; 94760

== ENCOUNTER 2020-05-20 11:54 | Emergency (ER) | payer MEDICAID ==
[~2020-05-20] VITALS: Ht 175.3 cm; Wt 95.0 kg
[~2020-05-20 11:54] MED LIST changes: -BACL-11 PO; -BUPR1PAT2 TD; -DICL-343 PO; -FLO0.4C PO; +MELA1TAB28 PO
[2020-05-20 11:59] VITALS: BP 114/80
[2020-05-20] MEDS ORDERED: AMOX-422 PO (12:24)
== END 2020-05-20 12:51 | disposition home or self-care (01) ==
LOC: ER 11:55
DX: H66.91 Otitis media, unspecified, right ear (principal); J45.909 Unspecified asthma, uncomplicated; N40.0 Benign prostatic hyperplasia without lower urinary tract symptoms; E07.9 Disorder of thyroid, unspecified; Z98.890 Other specified postprocedural states; Z72.89 Other problems related to lifestyle; Z88.8 Allergy status to other drugs, medicaments and biological substances; Z79.899 Other long term (current) drug therapy
CPT/HCPCS: 99283

== ENCOUNTER 2020-06-21 13:06 | Emergency (ER) | payer MEDICAID ==
[~2020-06-21] VITALS: Ht 177.8 cm; Wt 88.6 kg
[2020-06-21 13:55] LABS: BASOPHILS # (AUTO) 0.1 X10'3 (0-0.2); BASOPHILS % (AUTO) 0.7 % (0-1); EOSINOPHILS # (AUTO) 0.2 X10'3 (0-0.9); EOSINOPHILS % (AUTO) 1.6 % (0-6); HEMATOCRIT 42.6 % (42.0-52.0); HEMOGLOBIN 13.9 g/dl (14.0-17.9); LYMPHOCYTES # (AUTO) 1.2 X10'3 (1.1-4.8); LYMPHOCYTES % (AUTO) 10.6 % (21-51); MEAN CORPUSCULAR HEMOGLOBIN 28.1 PG (27.0-31.0); MEAN CORPUSCULAR HGB CONC 32.7 g/dL (33.0-36.5); MEAN CORPUSCULAR VOLUME 85.7 FL (78-98); MEAN PLATELET VOLUME 8.3 FL (7.4-10.4); MONOCYTES # (AUTO) 1.2 X10'3 (0-0.9); MONOCYTES % (AUTO) 10.8 % (2-12); NEUTROPHILS # (AUTO) 8.6 X10'3 (1.8-7.7); NEUTROPHILS % (AUTO) 76.3 % (42-75); PLATELET COUNT 271 X10'3 (140-440); RED BLOOD COUNT 4.97 X10'6 (4.70-6.10); RED CELL DISTRIBUTION WIDTH 14.5 % (11.5-14.5); WHITE BLOOD COUNT 11.3 X10'3 (4.5-11.0)
[2020-06-21 14:08] LABS: ALANINE AMINOTRANSFERASE 26 U/L (12-78); ALBUMIN 4.3 G/DL (3.4-5.0); ALBUMIN/GLOBULIN RATIO 1.1 (1.1-1.5); ALKALINE PHOSPHATASE 73 IU/L (46-116); ANION GAP 14 (8-16); ASPARTATE AMINO TRANSFERASE 34 U/L (10-37); BILIRUBIN,TOTAL 0.6 MG/DL (0.1-1.0); BLOOD UREA NITROGEN 35 MG/DL (7-18); CALCIUM 8.8 MG/DL (8.5-10.1); CHLORIDE 101 MMOL/L (99-107); CREATININE 1.25 MG/DL (0.60-1.10); GLUCOSE 99 MG/DL (70-104); POTASSIUM 4.1 MMOL/L (3.5-5.1); SODIUM 137 MMOL/L (135-145); TOTAL CARBON DIOXIDE 22.5 MMOL/L (24-32); TOTAL PROTEIN 8.1 G/DL (6.4-8.2); eGFR 60 ML/MIN
[2020-06-21] MEDS ORDERED: ketorolac trometh inj. 60 MG/2 ML VIAL IM ONE (16:55)
== END 2020-06-21 17:35 | disposition home or self-care (01) ==
LOC: ER 13:07
DX: R07.89 Other chest pain (principal); J45.909 Unspecified asthma, uncomplicated; Z86.69 Personal history of other diseases of the nervous system and sense organs; Z98.890 Other specified postprocedural states; Z72.89 Other problems related to lifestyle; Z88.5 Allergy status to narcotic agent; Z88.8 Allergy status to other drugs, medicaments and biological substances; Z79.899 Other long term (current) drug therapy
CPT/HCPCS: 36415; 71045; 80053; 83880; 84484; 85025; 93005; 96372; 99285; J1885

== ENCOUNTER 2020-06-23 00:36 | Emergency (ER) | payer MEDICAID ==
[~2020-06-23] VITALS: Ht 177.8 cm; Wt 90.0 kg
[2020-06-23] MEDS ORDERED: FLO0.4C PO (01:06)
[2020-06-23] MEDS ORDERED: BUPR1PAT2 TOP (01:06)
[2020-06-23] MEDS ORDERED: LEVO100T9 PO (01:06)
--- NOTE | 2020-06-23 01:10 | NUR ---
pt states he applied a buprenorphrine patch on Thursday but he does not have a patch on right now because it has fallen off. Pt has and order for buprenorphine patch Q7 days.
[2020-06-23] MEDS ORDERED: albuterol 2.5 MG/3 ML nebule NEB PRN (01:50)
[2020-06-23 02:44] LABS: BASOPHILS # (AUTO) 0.1 X10'3 (0-0.2); BASOPHILS % (AUTO) 0.7 % (0-1); EOSINOPHILS # (AUTO) 0.3 X10'3 (0-0.9); EOSINOPHILS % (AUTO) 2.9 % (0-6); HEMATOCRIT 40.4 % (42.0-52.0); HEMOGLOBIN 13.6 g/dl (14.0-17.9); LYMPHOCYTES # (AUTO) 1.2 X10'3 (1.1-4.8); LYMPHOCYTES % (AUTO) 12.4 % (21-51); MEAN CORPUSCULAR HEMOGLOBIN 28.9 PG (27.0-31.0); MEAN CORPUSCULAR HGB CONC 33.6 g/dL (33.0-36.5); MEAN CORPUSCULAR VOLUME 86.1 FL (78-98); MEAN PLATELET VOLUME 8.6 FL (7.4-10.4); MONOCYTES # (AUTO) 1.5 X10'3 (0-0.9); NEUTROPHILS # (AUTO) 6.7 X10'3 (1.8-7.7); PLATELET COUNT 253 X10'3 (140-440); RED BLOOD COUNT 4.69 X10'6 (4.70-6.10); RED CELL DISTRIBUTION WIDTH 14.1 % (11.5-14.5); WHITE BLOOD COUNT 9.7 X10'3 (4.5-11.0)
[2020-06-23 02:56] LABS: ALANINE AMINOTRANSFERASE 30 U/L (12-78); ALBUMIN 4.4 G/DL (3.4-5.0); ALBUMIN/GLOBULIN RATIO 1.2 (1.1-1.5); ALKALINE PHOSPHATASE 72 IU/L (46-116); ANION GAP 15 (8-16); ASPARTATE AMINO TRANSFERASE 45 U/L (10-37); BILIRUBIN,TOTAL 0.8 MG/DL (0.1-1.0); BLOOD UREA NITROGEN 41 MG/DL (7-18); BUN/CREATININE RATIO 26.1 (5.4-32.0); CALCIUM 9.1 MG/DL (8.5-10.1); CHLORIDE 99 MMOL/L (99-107); CREATININE 1.57 MG/DL (0.60-1.10); ETHANOL < 0.010 GM/DL (0.0-0.010); GLUCOSE 80 MG/DL (70-104); POTASSIUM 4.5 MMOL/L (3.5-5.1); SODIUM 133 MMOL/L (135-145); TOTAL CARBON DIOXIDE 19.3 MMOL/L (24-32); TOTAL PROTEIN 8.1 G/DL (6.4-8.2); eGFR 46 ML/MIN
[2020-06-23 05:22] LABS: URINE AMPHETAMINE SCREEN POSITIVE (Neg); URINE BARBITUATE SCREEN NEGATIVE (Neg); URINE BENZODIAZEPINES SCREEN NEGATIVE (Neg); URINE CANNABINOID SCREEN POSITIVE (Neg); URINE COCAINE SCREEN NEGATIVE (Neg); URINE METHADONE SCREEN NEGATIVE (Neg); URINE OPIATE SCREEN NEGATIVE (Neg); URINE PHENCYCLIDINE SCREEN NEGATIVE (Neg)
--- NOTE | 2020-06-23 06:26 | NUR ---
PACKET FAXED TO [facility]
--- NOTE | 2020-06-23 06:29 | NUR ---
Pt is awake, assisted to bathroom. Resting quietly in bed.
[2020-06-23] MEDS ORDERED: tamsulosin 0.4mg capsule PO SCH (08:00)
[2020-06-23] MEDS ORDERED: lamoTRIgine 100mg tablet PO SCH (08:00)
[2020-06-23] MEDS ORDERED: levoTHYROXINE 100mcg tablet PO SCH (08:00)
[2020-06-23 11:37] VITALS: BP 115/68
== END 2020-06-23 11:51 | disposition home or self-care (01) ==
LOC: ER 00:37
DX: R45.851 Suicidal ideations (principal); Z20.822 Contact with and (suspected) exposure to COVID-19; J45.909 Unspecified asthma, uncomplicated; N40.0 Benign prostatic hyperplasia without lower urinary tract symptoms; Z86.69 Personal history of other diseases of the nervous system and sense organs; Z88.8 Allergy status to other drugs, medicaments and biological substances; Z79.899 Other long term (current) drug therapy
CPT/HCPCS: 36415; 80053; 80305; 80320; 85025; 87426; 99284; 99285

== ENCOUNTER 2020-08-02 00:21 | Emergency (ER) | payer MEDICAID ==
[~2020-08-02] VITALS: Ht 175.3 cm; Wt 84.1 kg
[~2020-08-02 00:21] MED LIST changes: +FLO0.4C PO; +LEVO100T9 PO; -LEVO125T8 PO; -MELA1TAB28 PO; -PARO20TA6 PO; -TIOT4MIS5 INH; -TRAZ-256 PO
[2020-08-02 00:23] VITALS: BP 121/72
[2020-08-02] MEDS ORDERED: orphenadrine citrate 60mg/2ml inj. IM ONE (00:35)
--- NOTE | 2020-08-02 00:45 | NUR ---
PT IS SITTING COMFORTABLY IN BED, EATING M&MS, AND PLAYING ON PHONE. PT REPORTS 10/10 PAIN TO LEFT HIP X 16 YEARS. NO SIGN OF DISTRESS NOTED
--- NOTE | 2020-08-02 01:17 | NUR ---
PT AMBULATED 20 FEET WITH NO DIFFICULTY. DIAZ CROOKS AWARE
== END 2020-08-02 02:01 | disposition home or self-care (01) ==
LOC: ER 00:21
DX: G89.29 Other chronic pain (principal); M25.552 Pain in left hip; R51.9 Headache, unspecified; M13.852 Other specified arthritis, left hip; J45.909 Unspecified asthma, uncomplicated; F17.200 Nicotine dependence, unspecified, uncomplicated; Z86.69 Personal history of other diseases of the nervous system and sense organs; Z98.890 Other specified postprocedural states; Z88.5 Allergy status to narcotic agent; Z88.8 Allergy status to other drugs, medicaments and biological substances; Z79.899 Other long term (current) drug therapy
CPT/HCPCS: 73501; 96372; 99283; J2360

== ENCOUNTER 2020-08-03 23:53 | Emergency (ER) | payer MEDICAID ==
[~2020-08-03] VITALS: Ht 172.7 cm; Wt 84.1 kg
[2020-08-04 00:06] VITALS: BP 175/93
--- NOTE | 2020-08-04 01:00 | NUR ---
SEEN AT [facility]
--- NOTE | 2020-08-04 01:00 | NUR ---
REQUESTING MEDICATION TO RELEAVE RIGHT HIP PAIN UNTIL SURGERY FOR BONE SPUR
[2020-08-04] MEDS ORDERED: HYDROcodone/acetaminophen 5mg/325mg tablet PO ONE (01:30)
[2020-08-04] MEDS ORDERED: cyclobenzaprine 10mg tablet PO ONE ×2 (01:30→02:00)
== END 2020-08-04 02:13 | disposition home or self-care (01) ==
LOC: ER 23:54
DX: G89.29 Other chronic pain (principal); M25.552 Pain in left hip; J45.909 Unspecified asthma, uncomplicated; Z86.69 Personal history of other diseases of the nervous system and sense organs; Z98.890 Other specified postprocedural states; Z88.5 Allergy status to narcotic agent; Z88.8 Allergy status to other drugs, medicaments and biological substances; Z79.899 Other long term (current) drug therapy
CPT/HCPCS: 93005; 99283

== ENCOUNTER 2020-08-08 06:20 | Emergency (ER) | payer MEDICAID ==
[~2020-08-08] VITALS: Ht 175.3 cm; Wt 86.4 kg
[2020-08-08 08:00] LABS: BASOPHILS % (AUTO) 0.1 % (0-1); EOSINOPHILS % (AUTO) 0.2 % (0-6); HEMATOCRIT 32.1 % (42.0-52.0); HEMOGLOBIN 10.5 g/dl (14.0-17.9); LYMPHOCYTES # (AUTO) 0.7 X10'3 (1.1-4.8); MEAN CORPUSCULAR HGB CONC 32.7 g/dL (33.0-36.5); MEAN CORPUSCULAR VOLUME 82.5 FL (78-98); MEAN PLATELET VOLUME 7.9 FL (7.4-10.4); MONOCYTES # (AUTO) 1.8 X10'3 (0-0.9); MONOCYTES % (AUTO) 11.9 % (2-12); NEUTROPHILS # (AUTO) 12.3 X10'3 (1.8-7.7); NEUTROPHILS % (AUTO) 82.8 % (42-75); PLATELET COUNT 337 X10'3 (140-440); RED BLOOD COUNT 3.89 X10'6 (4.70-6.10); RED CELL DISTRIBUTION WIDTH 14.2 % (11.5-14.5); WHITE BLOOD COUNT 14.8 X10'3 (4.5-11.0)
[2020-08-08 08:12] LABS: ALANINE AMINOTRANSFERASE 65 U/L (12-78); ALBUMIN 3.3 G/DL (3.4-5.0); ALBUMIN/GLOBULIN RATIO 0.8 (1.1-1.5); ALKALINE PHOSPHATASE 78 IU/L (46-116); ANION GAP 13 (8-16); ASPARTATE AMINO TRANSFERASE 133 U/L (10-37); BILIRUBIN,TOTAL 0.9 MG/DL (0.1-1.0); BLOOD UREA NITROGEN 23 MG/DL (7-18); BUN/CREATININE RATIO 24.2 (5.4-32.0); CHLORIDE 101 MMOL/L (99-107); CREATININE 0.95 MG/DL (0.60-1.10); ETHANOL < 0.010 GM/DL (0.0-0.010); GLUCOSE 125 MG/DL (70-104); POTASSIUM 4.3 MMOL/L (3.5-5.1); SODIUM 137 MMOL/L (135-145); TOTAL CARBON DIOXIDE 23.1 MMOL/L (24-32); TOTAL PROTEIN 7.3 G/DL (6.4-8.2); eGFR 83 ML/MIN
[2020-08-08 10:09] LABS: URINE AMPHETAMINE SCREEN POSITIVE (Neg); URINE BARBITUATE SCREEN NEGATIVE (Neg); URINE BENZODIAZEPINES SCREEN NEGATIVE (Neg); URINE CANNABINOID SCREEN POSITIVE (Neg); URINE COCAINE SCREEN NEGATIVE (Neg); URINE METHADONE SCREEN NEGATIVE (Neg); URINE OPIATE SCREEN NEGATIVE (Neg); URINE PHENCYCLIDINE SCREEN NEGATIVE (Neg)
[2020-08-08] MEDS ORDERED: LEVO125T PO (10:24)
--- NOTE | 2020-08-08 10:46 | NUR ---
PACKET FAXED TO [facility]
--- NOTE | 2020-08-08 10:54 | NUR ---
PT RESTING ON BED, LAB WAS CALLED TO RUN URINALYSIS
[2020-08-08 10:56] LABS: CLARITY,URINE CLEAR (Clear); COLOR,URINE YELLOW (Yellow); GLUCOSE, URINE NEGATIVE (Neg); KETONES,URINE 40 mg/dl (Neg); LEUKOCYTE ESTERASE ,URINE NEGATIVE (Neg); NITRITES, URINE NEGATIVE (Neg); OCCULT BLOOD,URINE TRACE-INTACT (Neg); PROTEIN,URINE TRACE mg/dl (Neg); UA COLLECTION TYPE CLN CATCH MIDSTREAM; UROBILINOGEN,URINE 0.2 E.U/dL (0.2-1.0)
[2020-08-08 11:06] LABS: BACTERIA,URINE FEW /HPF (Neg)
[2020-08-08 11:12] LABS: SQUAMOUS EPITHELIAL CELL,UR FEW /LPF (FEW)
[2020-08-08 11:14] LABS: HYALINE CASTS 0-3 /LPF (NEGATIVE)
[2020-08-08 11:15] LABS: RBC,URINE 0-2 /HPF (0-2); TRANSITIONAL EPI CELLS,URINE FEW /HPF; WBC,URINE 0-4 /HPF (0-4)
--- NOTE | 2020-08-08 11:23 | NUR ---
TORRES (PT'S MOM) [phone]
--- NOTE | 2020-08-08 11:27 | NUR ---
mental health spoke with pt, pt currently on the phone with his mother
--- NOTE | 2020-08-08 12:25 | NUR ---
pt was up to use the restroom
--- NOTE | 2020-08-08 13:16 | NUR ---
pt resting quietly in bed after lunch
--- NOTE | 2020-08-08 14:18 | NUR ---
[facility] battery installer in to see pt
--- NOTE | 2020-08-08 15:07 | NUR ---
PT ACCEPTED AT A [facility] IN [place], PER [facility] CLINICIAN, WILL SEND PT VIA [employer] AWAITING DISCHARGE PAPERS AT THIS TIME
--- NOTE | 2020-08-08 15:48 | NUR ---
PT DISCHARGED, TO GO TO [facility] IN [place] VIA TAXI AND F/U WITH HIS PMD
--- NOTE | 2020-08-08 15:52 | NUR ---
PROVIDER SAW PT FOR ELBOW WOUNDS AND WBC COUNT OF 14.8, NO NEW ORDERS, PT TO F/U WITH HIS PMD
--- NOTE | 2020-08-08 16:01 | NUR ---
NURSE SPOKE WITH [facility], WAS TOLD THAT IT WAS NOT AN OVERNIGHT PROGRAM. [facility] CLINICIAN NOTIFED.
--- NOTE | 2020-08-08 16:06 | NUR ---
PT DISCHARGED, TO DAUGHTER'S ADDRESS VIA TAXI OR PT'S CHOICE, PER MENTAL HEALTH CLINICIAN.
[2020-08-08 16:08] VITALS: BP 111/60
== END 2020-08-08 16:12 ==
LOC: ER 06:21
DX: R45.851 Suicidal ideations (principal); M79.671 Pain in right foot; G89.29 Other chronic pain; M25.551 Pain in right hip; J45.909 Unspecified asthma, uncomplicated; Z86.69 Personal history of other diseases of the nervous system and sense organs; Z98.890 Other specified postprocedural states; Z88.5 Allergy status to narcotic agent; Z88.8 Allergy status to other drugs, medicaments and biological substances; Z79.899 Other long term (current) drug therapy
CPT/HCPCS: 36415; 73630; 80053; 80305; 80320; 81001; 85025; 99285

== ENCOUNTER 2020-08-13 06:42 | Emergency (ER) | payer MEDICAID ==
[~2020-08-13] VITALS: Ht 177.8 cm; Wt 94.0 kg
[~2020-08-13 06:42] MED LIST changes: -LEVO100T9 PO; +LEVO125T PO
[2020-08-13 06:49] VITALS: BP 141/84
[2020-08-13] MEDS ORDERED: HYDROcodone/acetaminophen 5mg/325mg tablet PO ONE (06:50)
[2020-08-13] MEDS ORDERED: NAPR-56 PO (07:09)
[2020-08-13] MEDS ORDERED: ACET-812 PO (07:09)
== END 2020-08-13 07:33 | disposition home or self-care (01) ==
LOC: ER 06:43
DX: S30.0XXA Contusion of lower back and pelvis, initial encounter (principal); S50.312A Abrasion of left elbow, initial encounter; R07.81 Pleurodynia; J45.909 Unspecified asthma, uncomplicated; R05 Cough; Z86.69 Personal history of other diseases of the nervous system and sense organs; Z59.0 Homelessness; Z88.8 Allergy status to other drugs, medicaments and biological substances; Z88.5 Allergy status to narcotic agent; Z79.899 Other long term (current) drug therapy; Y08.89XA Assault by other specified means, initial encounter; Y93.89 Activity, other specified; Y92.89 Other specified places as the place of occurrence of the external cause; Y99.8 Other external cause status
CPT/HCPCS: 71046; 99283; 99284

== ENCOUNTER 2020-08-21 13:48 | Emergency (ER) | payer MEDICAID ==
[~2020-08-21] VITALS: Ht 177.8 cm; Wt 93.6 kg
[~2020-08-21 13:48] MED LIST changes: +ACET-812 PO; +NAPR-56 PO
[2020-08-21 14:06] VITALS: BP 120/61
[2020-08-21] MEDS ORDERED: ketorolac tromethamine 15mg/ml inj. IM ONE (16:55)
== END 2020-08-21 17:12 | disposition home or self-care (01) ==
LOC: ER 13:49
DX: Z00.00 Encounter for general adult medical examination without abnormal findings (principal); M79.674 Pain in right toe(s); R05 Cough; R07.89 Other chest pain; J44.9 Chronic obstructive pulmonary disease, unspecified; Z86.69 Personal history of other diseases of the nervous system and sense organs; Z98.890 Other specified postprocedural states; Z59.0 Homelessness; Z88.8 Allergy status to other drugs, medicaments and biological substances; Z88.5 Allergy status to narcotic agent; Z88.6 Allergy status to analgesic agent; Z79.899 Other long term (current) drug therapy
CPT/HCPCS: 93005; 99283

== ENCOUNTER 2021-02-07 21:25 | Emergency (ER) | payer MEDICAID, OTHER ==
[~2021-02-07] VITALS: Ht 177.8 cm; Wt 79.5 kg
[~2021-02-07 21:25] MED LIST changes: -ACET-812 PO; +ALBU8.5H17 INH; -ALBU8.5H8 INH; -NAPR-56 PO
[2021-02-07 21:29] VITALS: BP 131/84
[2021-02-07] MEDS ORDERED: sulfamethoxazole/trimethoprim DS (800/160mg) tablet PO ONE (22:20)
[2021-02-07] MEDS ORDERED: ondansetron 4mg rapidly disintigrating tab PO ONE (22:20)
[2021-02-07] MEDS ORDERED: bacitracin 15gm ointment TP ONE (22:20)
[2021-02-07] MEDS ORDERED: TETanus/Pertussis (Acell)/Diphther VAC/PF (Tdap-Adult) 0.5ml syringe IMVAC ONE (22:20)
[2021-02-07] MEDS ORDERED: SULF1TAB49 PO (22:36)
[2021-02-07] MEDS ORDERED: ibuprofen tablet 400 MG TABLET PO ONE (22:55)
== END 2021-02-07 23:03 | disposition home or self-care (01) ==
LOC: ER 21:26
DX: S62.102A Fracture of unspecified carpal bone, left wrist, initial encounter for closed fracture (principal); J44.9 Chronic obstructive pulmonary disease, unspecified; E07.9 Disorder of thyroid, unspecified; Z88.5 Allergy status to narcotic agent; Z79.899 Other long term (current) drug therapy; Z59.0 Homelessness; W22.8XXA Striking against or struck by other objects, initial encounter; Y93.89 Activity, other specified; Y92.89 Other specified places as the place of occurrence of the external cause; Y99.8 Other external cause status
CPT/HCPCS: 73110; 90715; 99284

== ENCOUNTER 2021-02-08 22:53 | Emergency (ER) | payer MEDICAID, OTHER ==
[~2021-02-08] VITALS: Ht 177.8 cm; Wt 79.5 kg
[~2021-02-08 22:53] MED LIST changes: +SULF1TAB49 PO
[2021-02-08] MEDS ORDERED: aspirin 81mg tab.chew PO ONE (22:55)
[2021-02-08] MEDS ORDERED: nitroGLYCERIN 0.4mg SUBLingual tab SL PRN (23:00)
[2021-02-09 00:09] LABS: BASOPHILS # (AUTO) 0.1 X10'3 (0-0.2); BASOPHILS % (AUTO) 0.9 % (0-1); EOSINOPHILS # (AUTO) 0.3 X10'3 (0-0.9); EOSINOPHILS % (AUTO) 2.2 % (0-6); HEMATOCRIT 42.6 % (42.0-52.0); HEMOGLOBIN 13.8 g/dl (14.0-17.9); LYMPHOCYTES # (AUTO) 2.5 X10'3 (1.1-4.8); LYMPHOCYTES % (AUTO) 20.4 % (21-51); MEAN CORPUSCULAR HEMOGLOBIN 25.4 PG (27.0-31.0); MEAN CORPUSCULAR HGB CONC 32.3 g/dL (33.0-36.5); MEAN CORPUSCULAR VOLUME 78.5 FL (78-98); MEAN PLATELET VOLUME 7.9 FL (7.4-10.4); MONOCYTES # (AUTO) 1.2 X10'3 (0-0.9); MONOCYTES % (AUTO) 9.9 % (2-12); NEUTROPHILS # (AUTO) 8.2 X10'3 (1.8-7.7); NEUTROPHILS % (AUTO) 66.6 % (42-75); PLATELET COUNT 295 X10'3 (140-440); RED BLOOD COUNT 5.43 X10'6 (4.70-6.10); RED CELL DISTRIBUTION WIDTH 18.6 % (11.5-14.5); WHITE BLOOD COUNT 12.2 X10'3 (4.5-11.0)
[2021-02-09 00:35] LABS: ALANINE AMINOTRANSFERASE 29 U/L (12-78); ALBUMIN 4.4 G/DL (3.4-5.0); ALBUMIN/GLOBULIN RATIO 1.1 (1.1-1.5); ALKALINE PHOSPHATASE 99 IU/L (46-116); ANION GAP 12 (8-16); ASPARTATE AMINO TRANSFERASE 26 U/L (10-37); BILIRUBIN,TOTAL 0.5 MG/DL (0.1-1.0); BLOOD UREA NITROGEN 22 MG/DL (7-18); BUN/CREATININE RATIO 15.8 (5.4-32.0); CALCIUM 9.1 MG/DL (8.5-10.1); CHLORIDE 105 MMOL/L (99-107); CREATININE 1.39 MG/DL (0.60-1.10); GLUCOSE 109 MG/DL (70-104); POTASSIUM 3.4 MMOL/L (3.5-5.1); SODIUM 143 MMOL/L (135-145); TOTAL CARBON DIOXIDE 26.2 MMOL/L (24-32); TOTAL PROTEIN 8.3 G/DL (6.4-8.2); eGFR 53 ML/MIN
[2021-02-09 00:49] LABS: MAGNESIUM 1.8 MG/DL (1.5-2.4)
--- NOTE | 2021-02-09 03:53 | NUR ---
pt refused his second trop and dr vincent made aware
[2021-02-09] MEDS ORDERED: mag hydrox/Alum hydrox/simeth 30ml oral suspension PO PRN (05:05)
[2021-02-09] MEDS ORDERED: magnesium 4gm in 100ml NS 100 ML IV PRN (05:05)
[2021-02-09] MEDS ORDERED: potassium Cl 40MEQ/1/2NS 520ml 520 ML IV PRN ×2 (05:05)
[2021-02-09] MEDS ORDERED: potassium Cl 20 mEq SR tablet PO PRN ×2 (05:05)
[2021-02-09] MEDS ORDERED: magnesium 2GM in 50ml NS 50 ML IV PRN (05:05)
[2021-02-09] MEDS ORDERED: HYDROcodone/acetaminophen 5mg/325mg tablet PO PRN (05:05)
[2021-02-09] MEDS ORDERED: nitroGLYCERIN 0.4mg SUBLingual tab SL PRN (05:05)
[2021-02-09] MEDS ORDERED: acetaminophen 325mg tablet PO PRN ×2 (05:05)
[2021-02-09] MEDS ORDERED: normal saline 1000ml 1,000 ML IV SCH (05:05)
[2021-02-09] MEDS ORDERED: PERFLUTREN PROTEIN-A MICROSPHR (Optison) 0.22 MG/ML 3ML VIAL IV PRN (05:05)
[2021-02-09] MEDS ORDERED: ipratropium/albuterol 3ml nebule NEB PRN (05:05)
[2021-02-09] MEDS ORDERED: ondansetron/PF 4mg/2ml inj IV PRN (05:05)
[2021-02-09] MEDS ORDERED: albuterol 2.5 MG/3 ML nebule NEB PRN (05:05)
[2021-02-09] MEDS ORDERED: magnesium hydroxide 30ml (MOM) UD suspension PO PRN (05:05)
[2021-02-09] MEDS ORDERED: HYDROcodone/acetaminophen 10/325mg tab PO PRN (05:05)
[2021-02-09] MEDS ORDERED: morphine 2 MG/ML inj. syringe IV PRN ×2 (05:05)
[2021-02-09 06:01] LABS: ANISOCYTOSIS 2+; MICROCYTOSIS 1+; PLATELET ESTIMATE NORMAL
[2021-02-09 06:14] LABS: CHOL/HDL RATIO 2.1 (0.00-4.99); CHOLESTEROL 112 MG/DL (0-200); HDL CHOLESTEROL 54 MG/DL (35-60); LDL CHOLESTEROL 42 MG/DL (50-100); TRIGLYCERIDES 65 MG/DL (20-135)
--- NOTE | 2021-02-09 06:51 | NUR ---
PATIENT FOUND USING HOSPITAL COMPUTER. CONTINUES TO REMOVE HEART MONITOR. PATIENT INSTRUCTED NOT TO TOUCH HOSPITAL COMPUTER OR SECURITY WOULD BE CALLED. REFUSING TO WEAR HEART MONITOR.
--- NOTE | 2021-02-09 07:02 | NUR ---
DR. ROCK PAGED.
--- NOTE | 2021-02-09 07:21 | NUR ---
DR. ROCK NOTIFIED OF PATIENT'S BEHAVIOR AND REFUSAL TO COMPLY WITH MONITORING.
--- NOTE | 2021-02-09 07:26 | NUR ---
PATIENT ATTEMPTING TO USE COMPUTER AGAIN. SECURITY AT BEDSIDE TO TALK TO PATIENT.
[2021-02-09] MEDS ORDERED: LORazepam 1 MG tablet PO ONE ×2 (07:40→09:25)
[2021-02-09] MEDS ORDERED: docusate sod 100mg capsule PO SCH (08:00)
[2021-02-09] MEDS ORDERED: nicotine 21mg patch - 24 hr TD SCH (08:00)
[2021-02-09] MEDS ORDERED: K and/or MAG REPLACEMENT MC SCH (08:00)
[2021-02-09] MEDS ORDERED: aspirin 81mg, enteric-coated 1 TAB TABLET.DR PO SCH (09:15)
[2021-02-09] MEDS ORDERED: LAMO100T PO (09:19)
[2021-02-09] MEDS ORDERED: GABA-530 PO (09:19)
[2021-02-09] MEDS ORDERED: BUPR1PAT20 TOP (09:19)
[2021-02-09] MEDS ORDERED: FLO0.4C PO (09:19)
[2021-02-09] MEDS ORDERED: LEVO125T8 PO (09:19)
[2021-02-09 09:20] VITALS: BP 108/69
[2021-02-09] MEDS ORDERED: BUPRENORPHINE (Butrans) 10MCG PATCH.TDWK (7-day patch) TP SCH (13:00)
[2021-02-09] MEDS ORDERED: lamoTRIgine 100mg tablet PO SCH (20:00)
[2021-02-09] MEDS ORDERED: enoxaparin 40mg/0.4ml syringe SQ SCH (20:00)
[2021-02-09] MEDS ORDERED: gabapentin 100mg capsule PO SCH (21:00)
[2021-02-10] MEDS ORDERED: levoTHYROXINE 125mcg tablet PO SCH (08:00)
[2021-02-10] MEDS ORDERED: tamsulosin 0.4mg capsule PO SCH (08:00)
== END 2021-02-09 09:55 | disposition left against medical advice (07) ==
LOC: ER 22:54 → ED HOLD 02-09 05:12 → UNDOADMIN 02-09 05:12 → ER 02-09 09:55 → UNDODISIN 02-09 10:00
DX: R07.89 Other chest pain (principal); R06.02 Shortness of breath; R11.0 Nausea; R00.2 Palpitations; I25.10 Atherosclerotic heart disease of native coronary artery without angina pectoris; I25.2 Old myocardial infarction; E78.00 Pure hypercholesterolemia, unspecified; N28.9 Disorder of kidney and ureter, unspecified; J44.9 Chronic obstructive pulmonary disease, unspecified; N40.0 Benign prostatic hyperplasia without lower urinary tract symptoms; F15.90 Other stimulant use, unspecified, uncomplicated; F17.200 Nicotine dependence, unspecified, uncomplicated; Z72.89 Other problems related to lifestyle; Z82.49 Family history of ischemic heart disease and other diseases of the circulatory system; Z95.5 Presence of coronary angioplasty implant and graft; Z88.6 Allergy status to analgesic agent; Z88.8 Allergy status to other drugs, medicaments and biological substances; Z79.899 Other long term (current) drug therapy
CPT/HCPCS: 36415; 71045; 80053; 80061; 83735; 83880; 84443; 84484; 85008; 85025; 85379; 93005; 93306; 99285; G0378

== ENCOUNTER 2021-02-14 19:37 | Emergency (ER) | payer MEDICAID ==
[~2021-02-14] VITALS: Ht 177.8 cm; Wt 78.0 kg
[~2021-02-14 19:37] MED LIST changes: -ALBU8.5H17 INH; +BUPR1PAT20 TOP; +GABA-530 PO; +LAMO100T PO; -LAMO100T2 PO; -LEVO125T PO; +LEVO125T8 PO; -SULF1TAB49 PO
--- NOTE | 2021-02-14 23:25 | NUR ---
The patient to bed 22 from triage. He self presented to the ER with suicidal thoughts with a plan to overdose. He is very drowsy but easily awakened and cooperative with nursing staff. He had his CT and EKG. Lab is here currently to draw his blood and the patient is aware that he a urine specimen is needed. He has had some kind of run in with the staff at the [facility] and he can no longer stay there. He is on probation. He reports last methamphetamine use was yesterday. Reports history of seizures and stated his last seizure was yesterday.
[2021-02-14 23:43] LABS: BASOPHILS # (AUTO) 0.1 X10'3 (0-0.2); BASOPHILS % (AUTO) 1.2 % (0-1); EOSINOPHILS # (AUTO) 0.3 X10'3 (0-0.9); HEMATOCRIT 39.5 % (42.0-52.0); HEMOGLOBIN 12.9 g/dl (14.0-17.9); LYMPHOCYTES # (AUTO) 2.4 X10'3 (1.1-4.8); LYMPHOCYTES % (AUTO) 27.7 % (21-51); MEAN CORPUSCULAR HEMOGLOBIN 26.2 PG (27.0-31.0); MEAN CORPUSCULAR HGB CONC 32.8 g/dL (33.0-36.5); MEAN CORPUSCULAR VOLUME 79.8 FL (78-98); MEAN PLATELET VOLUME 8.1 FL (7.4-10.4); MONOCYTES # (AUTO) 0.9 X10'3 (0-0.9); MONOCYTES % (AUTO) 11.1 % (2-12); NEUTROPHILS # (AUTO) 4.8 X10'3 (1.8-7.7); PLATELET COUNT 268 X10'3 (140-440); RED BLOOD COUNT 4.95 X10'6 (4.70-6.10); RED CELL DISTRIBUTION WIDTH 19.6 % (11.5-14.5); WHITE BLOOD COUNT 8.5 X10'3 (4.5-11.0)
--- NOTE | 2021-02-14 23:53 | NUR ---
The patient was unable to state what his home medications currently are. He did not bring any medications in with him.
[2021-02-14 23:58] LABS: ALANINE AMINOTRANSFERASE 20 U/L (12-78); ALBUMIN 3.4 G/DL (3.4-5.0); ALBUMIN/GLOBULIN RATIO 0.9 (1.1-1.5); ALKALINE PHOSPHATASE 83 IU/L (46-116); ANION GAP 9 (8-16); ASPARTATE AMINO TRANSFERASE 21 U/L (10-37); BILIRUBIN,TOTAL 0.4 MG/DL (0.1-1.0); BLOOD UREA NITROGEN 24 MG/DL (7-18); BUN/CREATININE RATIO 23.1 (5.4-32.0); CALCIUM 8.2 MG/DL (8.5-10.1); CHLORIDE 105 MMOL/L (99-107); CREATININE 1.04 MG/DL (0.60-1.10); GLUCOSE 93 MG/DL (70-104); POTASSIUM 3.7 MMOL/L (3.5-5.1); SODIUM 141 MMOL/L (135-145); TOTAL CARBON DIOXIDE 26.7 MMOL/L (24-32); eGFR 74 ML/MIN
[2021-02-15 00:07] LABS: ETHANOL < 0.010 GM/DL (0.0-0.010); TROPONIN I < 0.04 NG/ML (0.0-0.05)
[2021-02-15 00:10] LABS: ACETAMINOPHEN < 2.0 UG/ML (10-30)
[2021-02-15 00:38] LABS: URINE AMPHETAMINE SCREEN POSITIVE (Neg); URINE BARBITUATE SCREEN NEGATIVE (Neg); URINE BENZODIAZEPINES SCREEN NEGATIVE (Neg); URINE CANNABINOID SCREEN POSITIVE (Neg); URINE COCAINE SCREEN NEGATIVE (Neg); URINE METHADONE SCREEN NEGATIVE (Neg); URINE OPIATE SCREEN NEGATIVE (Neg); URINE PHENCYCLIDINE SCREEN NEGATIVE (Neg)
--- NOTE | 2021-02-15 01:00 | NUR ---
The patient appears to be sleeping
--- NOTE | 2021-02-15 01:29 | NUR ---
Packet sent to [facility]
--- NOTE | 2021-02-15 02:30 | NUR ---
The patient appears to be sleeping
--- NOTE | 2021-02-15 04:54 | NUR ---
The patient appears to be sleeping
--- NOTE | 2021-02-15 06:50 | NUR ---
Pt sleeping on his right side. RR even and unlabored. No signs of distress or discomfort.
[2021-02-15 09:06] VITALS: BP 90/53
--- NOTE | 2021-02-15 09:12 | NUR ---
Pt up for breakfast then went back to sleep.
--- NOTE | 2021-02-15 11:15 | NUR ---
Pt continues to sleep. He has been taken off of the hold and is now discharged. He is refusing to leave.
--- NOTE | 2021-02-15 13:10 | NUR ---
Pt ate lunch then went back to sleep. He continues to state, "I'm not leaving right now."
--- NOTE | 2021-02-15 14:30 | NUR ---
Pt discharged. He called a cab to go to a friends house. All personal belongings are with him. He was on his phone calling a Taxi.
== END 2021-02-15 14:30 | disposition home or self-care (01) ==
LOC: ER 19:38
DX: R45.851 Suicidal ideations (principal); Z20.822 Contact with and (suspected) exposure to COVID-19; R07.89 Other chest pain; R51.9 Headache, unspecified; I25.10 Atherosclerotic heart disease of native coronary artery without angina pectoris; I25.2 Old myocardial infarction; J44.9 Chronic obstructive pulmonary disease, unspecified; F17.200 Nicotine dependence, unspecified, uncomplicated; F15.90 Other stimulant use, unspecified, uncomplicated; Z86.69 Personal history of other diseases of the nervous system and sense organs; Z98.890 Other specified postprocedural states; Z59.0 Homelessness; Z88.5 Allergy status to narcotic agent; Z88.6 Allergy status to analgesic agent; Z88.8 Allergy status to other drugs, medicaments and biological substances; Z79.899 Other long term (current) drug therapy
CPT/HCPCS: 36415; 70450; 80053; 80305; 80320; 80329; 84439; 84443; 84484; 85025; 87635; 93005; 99285; C9803

== ENCOUNTER 2021-02-20 23:16 | Emergency (ER) | payer MEDICAID ==
[~2021-02-20] VITALS: Ht 177.8 cm; Wt 75.0 kg
[~2021-02-20 23:16] MED LIST changes: +ALBU8.5H17 INH; +LAMO100T2 PO; +LEVO125T PO; +SULF1TAB49 PO
[2021-02-20 23:21] VITALS: BP 112/62
[2021-02-20] MEDS ORDERED: gabapentin 100mg capsule PO STA (23:55)
[2021-02-20] MEDS ORDERED: lamoTRIgine 100mg tablet PO STA (23:58)
--- NOTE | 2021-02-21 00:24 | NUR ---
pt reports he would like the emt's to come back so he can show them he doesn't have any drugs on him. He understands d/c orders but moves slowly and has increased agitation with request to leave RAP area. Tech assists with educating pt on d/c and need to follow up with primary md. Security called to assist.
== END 2021-02-21 00:28 | disposition home or self-care (01) ==
LOC: ER 23:16
DX: R05 Cough (principal); R56.9 Unspecified convulsions; I25.2 Old myocardial infarction; I25.10 Atherosclerotic heart disease of native coronary artery without angina pectoris; J44.9 Chronic obstructive pulmonary disease, unspecified; F17.200 Nicotine dependence, unspecified, uncomplicated; F15.90 Other stimulant use, unspecified, uncomplicated; Z86.69 Personal history of other diseases of the nervous system and sense organs; Z98.890 Other specified postprocedural states; Z59.0 Homelessness; Z88.5 Allergy status to narcotic agent; Z88.6 Allergy status to analgesic agent; Z88.8 Allergy status to other drugs, medicaments and biological substances; Z79.899 Other long term (current) drug therapy
CPT/HCPCS: 99283

== ENCOUNTER 2021-03-15 23:17 | Emergency (ER) | payer MEDICAID ==
[~2021-03-15] VITALS: Ht 177.8 cm; Wt 81.8 kg
[~2021-03-15 23:17] MED LIST changes: -ALBU8.5H17 INH; -LAMO100T2 PO; -LEVO125T PO; -SULF1TAB49 PO
--- NOTE | 2021-03-16 01:54 | NUR ---
PT TOLD ME HE WAS THINKING OF OVERDOSING ON HIS LAMOTRIGINE AND PAROXETINE. HE GAVE ME HIS PILL BOTTLES AND DENIED TAKING THEM. MEDS HAVE BEEN CONFISCATED AND WILL BE TAKEN DOWN TO PHARMACY.
[2021-03-16 03:22] LABS: BASOPHILS % (AUTO) 0 % (0-1); EOSINOPHILS % (AUTO) 0.1 % (0-6); HEMOGLOBIN 12.8 g/dl (14.0-17.9); LYMPHOCYTES # (AUTO) 0.7 X10'3 (1.1-4.8); LYMPHOCYTES % (AUTO) 5.5 % (21-51); MEAN CORPUSCULAR HEMOGLOBIN 25.9 PG (27.0-31.0); MEAN CORPUSCULAR HGB CONC 32.7 g/dL (33.0-36.5); MEAN CORPUSCULAR VOLUME 79.3 FL (78-98); MEAN PLATELET VOLUME 7.5 FL (7.4-10.4); MONOCYTES # (AUTO) 0.1 X10'3 (0-0.9); NEUTROPHILS # (AUTO) 11.5 X10'3 (1.8-7.7); NEUTROPHILS % (AUTO) 93.4 % (42-75); PLATELET COUNT 336 X10'3 (140-440); RED BLOOD COUNT 4.92 X10'6 (4.70-6.10); RED CELL DISTRIBUTION WIDTH 19.3 % (11.5-14.5); WHITE BLOOD COUNT 12.3 X10'3 (4.5-11.0)
[2021-03-16 03:32] LABS: ALANINE AMINOTRANSFERASE 20 U/L (12-78); ALBUMIN 3.4 G/DL (3.4-5.0); ALKALINE PHOSPHATASE 79 IU/L (46-116); ANION GAP 10 (8-16); ASPARTATE AMINO TRANSFERASE 13 U/L (10-37); BILIRUBIN,TOTAL 0.3 MG/DL (0.1-1.0); BLOOD UREA NITROGEN 24 MG/DL (7-18); BUN/CREATININE RATIO 22.2 (5.4-32.0); CALCIUM 8.5 MG/DL (8.5-10.1); CHLORIDE 107 MMOL/L (99-107); CREATININE 1.08 MG/DL (0.60-1.10); GLUCOSE 177 MG/DL (70-104); POTASSIUM 4.6 MMOL/L (3.5-5.1); SODIUM 140 MMOL/L (135-145); TOTAL CARBON DIOXIDE 22.9 MMOL/L (24-32); TOTAL PROTEIN 6.9 G/DL (6.4-8.2); eGFR 71 ML/MIN
[2021-03-16 03:43] LABS: ETHANOL < 0.010 GM/DL (0.0-0.010)
[2021-03-16 03:45] LABS: URINE AMPHETAMINE SCREEN NEGATIVE (Neg); URINE BARBITUATE SCREEN NEGATIVE (Neg); URINE BENZODIAZEPINES SCREEN NEGATIVE (Neg); URINE CANNABINOID SCREEN POSITIVE (Neg); URINE COCAINE SCREEN NEGATIVE (Neg); URINE METHADONE SCREEN NEGATIVE (Neg); URINE OPIATE SCREEN NEGATIVE (Neg); URINE PHENCYCLIDINE SCREEN NEGATIVE (Neg)
[2021-03-16 03:51] LABS: ACETAMINOPHEN < 2.0 UG/ML (10-30)
[2021-03-16 05:02] LABS: PLATELET ESTIMATE NORMAL
[2021-03-16 05:03] LABS: ANISOCYTOSIS 2+; ELLIPTOCYTES FEW; MICROCYTOSIS 1+
[2021-03-16 05:04] LABS: POIKILOCYTOSIS FEW
[2021-03-16] MEDS ORDERED: BACL10TA2 PO (05:08)
[2021-03-16] MEDS ORDERED: PARO30TA4 PO (05:08)
[2021-03-16] MEDS ORDERED: BUPRENORPHINE (Butrans) 10MCG PATCH.TDWK (7-day patch) TP SCH (08:00)
[2021-03-16] MEDS: baclofen 10mg tablet PO SCH ×2 (08:43→20:00)
[2021-03-16] MEDS: lamoTRIgine 100mg tablet PO SCH ×2 (08:43→20:00)
[2021-03-16] MEDS: tamsulosin 0.4mg capsule PO SCH (08:44)
[2021-03-16] MEDS: PARoxetine 10mg tablet PO SCH (08:45)
--- NOTE | 2021-03-16 08:53 | NUR ---
Pt MAR lists Buprenorphine as Pt's own medication. Per pharmacy, pt has not brought in this medication and it is therefore unavailable. Also, [facility] gave Levothyroxine 75 mcg x1 for pt med this am, however, pt dose is 125 mcg. RN called Pharmacy about the correct dose needed as well as they error of dose the [facility] gave. They state they will bring the correct dose.
[2021-03-16] MEDS: levoTHYROXINE 125mcg tablet PO SCH (13:21)
--- NOTE | 2021-03-16 13:22 | NUR ---
Pt awake, eating lunch. Correct dose of Levothyroxine brought per pharmacy and was given per RN
--- NOTE | 2021-03-16 15:48 | NUR ---
Pt ambulatory to bathroom and then back to bed
--- NOTE | 2021-03-16 16:00 | NUR ---
[facility] at bedside talking with pt
--- NOTE | 2021-03-16 17:50 | NUR ---
Pt sleeping, NAD
--- NOTE | 2021-03-16 19:01 | NUR ---
Pt is homeless and is wanting to stay at a hotel tonight, he states he has SI tendencies and has no where to go. D/C paperwork is ready. Pt presents as depressed.
--- NOTE | 2021-03-16 19:20 | NUR ---
Gave pt clothing and home prescription before leaving the unit, the pt took 300mg of Paxil because he didnt have "anywhere to go." Poison control, and CN notified. Gave pt 50grams of charcoal. Pt vitals are stable. 0 75HR, 98%, 17 RR, BP 121/66.
[2021-03-16] MEDS ORDERED: charcoal, activated 50 GM/240 ML bottle PO ONE (19:45)
--- NOTE | 2021-03-16 20:02 | NUR ---
Pt is stable at this time, 72HR, 99%, 16RR, 124/75BP.
--- NOTE | 2021-03-16 20:05 | NUR ---
pt is AOX4.
[2021-03-16] MEDS ORDERED: gabapentin 100mg capsule PO SCH (21:00)
--- NOTE | 2021-03-16 22:14 | NUR ---
Pt is AOX4, vitals are stable, pt appears to be sleeping.
--- NOTE | 2021-03-16 23:45 | NUR ---
Spoke with Dr Longoria regarding pt's condition and we will keep the patient overnight, agreed to put pt on a 1799 for DTS. PT condition is stable, vitals are WNL.
--- NOTE | 2021-03-17 00:57 | NUR ---
pt appears to be sleeping.
[2021-03-17 01:34] VITALS: BP 95/65
--- NOTE | 2021-03-17 02:49 | NUR ---
pt up to use the bathroom.
--- NOTE | 2021-03-17 03:53 | NUR ---
The pt appears to be sleeping.
--- NOTE | 2021-03-17 05:29 | NUR ---
Packet faxed to [facility].
[2021-03-17] MEDS: PARoxetine 10mg tablet PO SCH (08:00)
--- NOTE | 2021-03-17 08:30 | NUR ---
Pt. awake and eating breakfast. Pt. took all medications. 1:1 done at bedside, pt. continues to report SI with plan to overdose on medication. Pt. denies HI/AV hallucinations.
[2021-03-17] MEDS: baclofen 10mg tablet PO SCH (08:36)
[2021-03-17] MEDS: lamoTRIgine 100mg tablet PO SCH (08:36)
[2021-03-17] MEDS: levoTHYROXINE 125mcg tablet PO SCH (08:36)
[2021-03-17] MEDS: tamsulosin 0.4mg capsule PO SCH (08:36)
--- NOTE | 2021-03-17 10:03 | NUR ---
Pt. cleared by poison control.
--- NOTE | 2021-03-17 10:30 | NUR ---
Pt. asleep in bed. normal R&R of respirations observed.
--- NOTE | 2021-03-17 11:48 | NUR ---
Pt. informed of his discharge. Pt. signed all discharge paper work and then informed this RN that as soon as he will leave the hospital he will take all of his medications. RN informed [facility] social work administrator who will coordinate discharge plan.
--- NOTE | 2021-03-17 13:30 | NUR ---
RN spoke with Dr. Rooney regarding discharge plan. Pt. to be discharged with three days worth of medications. RN spoke with [facility] social services analyst, pt. to be discharged to [facility] via taxi cab.
--- NOTE | 2021-03-17 13:32 | NUR ---
Pt. requested to be discharged to [facility]
== END 2021-03-17 15:14 ==
LOC: ER 23:18
DX: T42.6X1A Poisoning by other antiepileptic and sedative-hypnotic drugs, accidental (unintentional), initial encounter (principal); Z20.822 Contact with and (suspected) exposure to COVID-19; R45.851 Suicidal ideations; F32.9 Major depressive disorder, single episode, unspecified; I25.10 Atherosclerotic heart disease of native coronary artery without angina pectoris; I25.2 Old myocardial infarction; J44.9 Chronic obstructive pulmonary disease, unspecified; F15.90 Other stimulant use, unspecified, uncomplicated; Z86.69 Personal history of other diseases of the nervous system and sense organs; Z98.890 Other specified postprocedural states; Z59.00 Homelessness unspecified; Z88.5 Allergy status to narcotic agent; Z88.8 Allergy status to other drugs, medicaments and biological substances; Z88.6 Allergy status to analgesic agent; Z79.899 Other long term (current) drug therapy; Y92.89 Other specified places as the place of occurrence of the external cause
CPT/HCPCS: 36415; 80053; 80305; 80320; 80329; 84443; 85008; 85025; 87635; 93005; 99285; C9803

== ENCOUNTER 2021-04-02 10:00 | Emergency (ER) | payer MEDICAID ==
[~2021-04-02] VITALS: Ht 177.8 cm; Wt 81.8 kg
[~2021-04-02 10:00] MED LIST changes: +BACL10TA2 PO; +PARO30TA4 PO
[2021-04-02 10:26] VITALS: BP 127/72
[2021-04-02] MEDS ORDERED: PARO30TA4 PO (12:40)
[2021-04-02] MEDS ORDERED: LEVO125C4 PO (12:40)
[2021-04-02] MEDS ORDERED: GABA-530 PO (12:40)
== END 2021-04-02 12:49 | disposition home or self-care (01) ==
LOC: ER 10:01
DX: S09.90XA Unspecified injury of head, initial encounter (principal); I25.10 Atherosclerotic heart disease of native coronary artery without angina pectoris; I25.2 Old myocardial infarction; J44.9 Chronic obstructive pulmonary disease, unspecified; F15.90 Other stimulant use, unspecified, uncomplicated; Z76.0 Encounter for issue of repeat prescription; Z86.69 Personal history of other diseases of the nervous system and sense organs; Z98.890 Other specified postprocedural states; Z59.00 Homelessness unspecified; Z88.5 Allergy status to narcotic agent; Z88.6 Allergy status to analgesic agent; Z88.8 Allergy status to other drugs, medicaments and biological substances; Z79.899 Other long term (current) drug therapy; X58.XXXA Exposure to other specified factors, initial encounter; Y93.89 Activity, other specified; Y92.89 Other specified places as the place of occurrence of the external cause; Y99.8 Other external cause status
CPT/HCPCS: 70450; 99284

== ENCOUNTER 2021-04-08 19:18 | Emergency (ER) | payer MEDICAID ==
[~2021-04-08] VITALS: Ht 177.8 cm; Wt 81.8 kg
[~2021-04-08 19:18] MED LIST changes: +LEVO125C4 PO
--- NOTE | 2021-04-08 19:59 | NUR ---
pt reported that he tested positive for covid 1 month
--- NOTE | 2021-04-08 20:14 | NUR ---
CALLED POISON CONTROL. ADVICED TO GIVE CHARCOAL PO AND MONITOR FOR QTC CHANGES. EKG NOW AND AT 8 HRS. HOME SECURITY PROFESSIONAL FOR 6-8 HRS. MONITOR FOR RN ORTHOPAEDICS DEPRESSION, NAUSEA, VOMITING, AND SEIZURES. ASA AND ACETAMINOPHEN LEVELS CHECK. CASE NUMBER [id number]
[2021-04-08] MEDS ORDERED: charcoal, activated 50 GM/240 ML bottle PO ONE (20:25)
--- NOTE | 2021-04-08 20:30 | NUR ---
MEDS HAVE BEEN STORED IN PHARMACY
[2021-04-08 20:51] LABS: BASOPHILS # (AUTO) 0.1 X10'3 (0-0.2); BASOPHILS % (AUTO) 0.6 % (0-1); EOSINOPHILS # (AUTO) 0.2 X10'3 (0-0.9); EOSINOPHILS % (AUTO) 1.9 % (0-6); HEMATOCRIT 42.8 % (42.0-52.0); LYMPHOCYTES # (AUTO) 1.4 X10'3 (1.1-4.8); LYMPHOCYTES % (AUTO) 15.9 % (21-51); MEAN CORPUSCULAR HEMOGLOBIN 26.5 PG (27.0-31.0); MEAN CORPUSCULAR HGB CONC 32.8 g/dL (33.0-36.5); MEAN CORPUSCULAR VOLUME 80.8 FL (78-98); MEAN PLATELET VOLUME 7.7 FL (7.4-10.4); MONOCYTES # (AUTO) 1.4 X10'3 (0-0.9); MONOCYTES % (AUTO) 15.8 % (2-12); NEUTROPHILS # (AUTO) 5.7 X10'3 (1.8-7.7); NEUTROPHILS % (AUTO) 65.8 % (42-75); PLATELET COUNT 308 X10'3 (140-440); WHITE BLOOD COUNT 8.7 X10'3 (4.5-11.0)
[2021-04-08 21:01] LABS: ALANINE AMINOTRANSFERASE 21 U/L (12-78); ALBUMIN 3.4 G/DL (3.4-5.0); ALBUMIN/GLOBULIN RATIO 0.9 (1.1-1.5); ALKALINE PHOSPHATASE 71 IU/L (46-116); ANION GAP 9 (8-16); ASPARTATE AMINO TRANSFERASE 13 U/L (10-37); BILIRUBIN,TOTAL 0.4 MG/DL (0.1-1.0); BLOOD UREA NITROGEN 21 MG/DL (7-18); BUN/CREATININE RATIO 22.1 (5.4-32.0); CALCIUM 8.5 MG/DL (8.5-10.1); CHLORIDE 105 MMOL/L (99-107); CREATININE 0.95 MG/DL (0.60-1.10); GLUCOSE 102 MG/DL (70-104); POTASSIUM 4.5 MMOL/L (3.5-5.1); SODIUM 142 MMOL/L (135-145); TOTAL CARBON DIOXIDE 28.4 MMOL/L (24-32); TOTAL PROTEIN 7.2 G/DL (6.4-8.2); eGFR 82 ML/MIN
[2021-04-08 21:03] LABS: ACETAMINOPHEN < 2.0 UG/ML (10-30); ETHANOL < 0.010 GM/DL (0.0-0.010)
[2021-04-08 21:46] LABS: TOTAL CELLS COUNTED 100
[2021-04-08 21:47] LABS: ANISOCYTOSIS 2+; PLATELET ESTIMATE NORMAL
[2021-04-08 21:48] LABS: MICROCYTOSIS FEW; POIKILOCYTOSIS FEW
--- NOTE | 2021-04-08 23:33 | NUR ---
POISON CONTROL HAS CALLED FOR AN UPDATE ON PT.
[2021-04-09 01:36] LABS: CLARITY,URINE CLEAR (Clear); COLOR,URINE YELLOW (Yellow); UA COLLECTION TYPE URINAL; URINE AMPHETAMINE SCREEN NEGATIVE (Neg); URINE BARBITUATE SCREEN NEGATIVE (Neg); URINE BENZODIAZEPINES SCREEN NEGATIVE (Neg); URINE CANNABINOID SCREEN POSITIVE (Neg); URINE COCAINE SCREEN NEGATIVE (Neg); URINE METHADONE SCREEN NEGATIVE (Neg); URINE OPIATE SCREEN NEGATIVE (Neg); URINE PHENCYCLIDINE SCREEN NEGATIVE (Neg)
[2021-04-09 01:37] LABS: GLUCOSE, URINE NEGATIVE (Neg); KETONES,URINE NEGATIVE (Neg); LEUKOCYTE ESTERASE ,URINE NEGATIVE (Neg); NITRITES, URINE NEGATIVE (Neg); OCCULT BLOOD,URINE NEGATIVE (Neg); PH,URINE 7.5 (4.8-8.0); PROTEIN,URINE NEGATIVE (Neg); UROBILINOGEN,URINE 0.2 E.U/dL (0.2-1.0)
--- NOTE | 2021-04-09 02:54 | NUR ---
PT IS SLEEPING COMFORTABLY. EQUAL RISE AND FALL OF CHEST
[2021-04-09] MEDS ORDERED: acetaminophen 325mg tablet PO ONE (04:15)
--- NOTE | 2021-04-09 04:48 | NUR ---
PT HAS BEEN MEDICALLY CLEARED BY DR MIRAMONTES. PT HAS BEEN WALKED TO HIS BED IN OVERFLOW. SBAR GIVEN TO DEDRICK.
[2021-04-09 05:59] VITALS: BP 111/68
--- NOTE | 2021-04-09 06:22 | NUR ---
Patient laying on left side. Appears to be sleeping. No distress observed. Continue to monitor.
--- NOTE | 2021-04-09 08:30 | NUR ---
Patient eating breakfast. No distress observed. Continue to monitor.
--- NOTE | 2021-04-09 09:25 | NUR ---
JAYCOB, Allie, evaluating patient. No distress observed. Continue to monitor.
== END 2021-04-09 12:15 | disposition home or self-care (01) ==
LOC: ER 19:20
DX: T43.222A Poisoning by selective serotonin reuptake inhibitors, intentional self-harm, initial encounter (principal); Z20.822 Contact with and (suspected) exposure to COVID-19; R45.851 Suicidal ideations; F32.9 Major depressive disorder, single episode, unspecified; R05.9 Cough, unspecified; I25.10 Atherosclerotic heart disease of native coronary artery without angina pectoris; I25.2 Old myocardial infarction; J44.9 Chronic obstructive pulmonary disease, unspecified; F15.90 Other stimulant use, unspecified, uncomplicated; Z86.69 Personal history of other diseases of the nervous system and sense organs; Z98.890 Other specified postprocedural states; Z59.00 Homelessness unspecified; Z88.5 Allergy status to narcotic agent; Z88.6 Allergy status to analgesic agent; Z88.8 Allergy status to other drugs, medicaments and biological substances; Z79.899 Other long term (current) drug therapy; Y92.89 Other specified places as the place of occurrence of the external cause
CPT/HCPCS: 36415; 80053; 80305; 80320; 80329; 81003; 85007; 85025; 87635; 93005; 99285; C9803

== ENCOUNTER 2021-04-11 20:47 | Emergency (ER) | payer MEDICAID ==
[~2021-04-11] VITALS: Ht 175.3 cm; Wt 79.5 kg
[~2021-04-11 20:47] MED LIST changes: -BACL10TA2 PO; -LEVO125C4 PO
[2021-04-11 20:58] VITALS: BP 117/88
[2021-04-11] MEDS ORDERED: ALBU8.5H17 INH (21:07)
[2021-04-11] MEDS ORDERED: ipratropium/albuterol 3ml nebule NEB ONE (21:15)
== END 2021-04-11 23:07 | disposition home or self-care (01) ==
LOC: ER 20:48
DX: Z76.0 Encounter for issue of repeat prescription (principal); R06.02 Shortness of breath; J44.9 Chronic obstructive pulmonary disease, unspecified; I25.10 Atherosclerotic heart disease of native coronary artery without angina pectoris; I25.2 Old myocardial infarction; F15.90 Other stimulant use, unspecified, uncomplicated; Z86.69 Personal history of other diseases of the nervous system and sense organs; Z98.890 Other specified postprocedural states; Z59.00 Homelessness unspecified; Z88.5 Allergy status to narcotic agent; Z88.6 Allergy status to analgesic agent; Z88.8 Allergy status to other drugs, medicaments and biological substances; Z79.899 Other long term (current) drug therapy
CPT/HCPCS: 94640; 94760; 99283

== ENCOUNTER 2021-04-16 21:26 | Inpatient (IN) | payer MEDICAID ==
[~2021-04-16] VITALS: Ht 177.8 cm; Wt 64.8 kg
[~2021-04-16 21:26] MED LIST changes: +ALBU8.5H17 INH
[2021-04-17 01:00] LABS: BASOPHILS % (AUTO) 0.1 % (0-1); EOSINOPHILS # (AUTO) 0.8 X10'3 (0-0.9); EOSINOPHILS % (AUTO) 2.7 % (0-6); HEMATOCRIT 39.7 % (42.0-52.0); HEMOGLOBIN 13.6 g/dl (14.0-17.9); LYMPHOCYTES # (AUTO) 1.5 X10'3 (1.1-4.8); LYMPHOCYTES % (AUTO) 5.1 % (21-51); MEAN CORPUSCULAR HEMOGLOBIN 26.9 PG (27.0-31.0); MEAN CORPUSCULAR HGB CONC 34.2 g/dL (33.0-36.5); MEAN CORPUSCULAR VOLUME 78.8 FL (78-98); MEAN PLATELET VOLUME 8.2 FL (7.4-10.4); MONOCYTES # (AUTO) 1.5 X10'3 (0-0.9); MONOCYTES % (AUTO) 5.1 % (2-12); NEUTROPHILS # (AUTO) 25.4 X10'3 (1.8-7.7); PLATELET COUNT 374 X10'3 (140-440); RED BLOOD COUNT 5.03 X10'6 (4.70-6.10); RED CELL DISTRIBUTION WIDTH 17.7 % (11.5-14.5)
[2021-04-17 01:09] LABS: WHITE BLOOD COUNT 29.1 X10'3 (4.5-11.0)
[2021-04-17 01:15] LABS: ALANINE AMINOTRANSFERASE 21 U/L (12-78); ALBUMIN 3.7 G/DL (3.4-5.0); ALBUMIN/GLOBULIN RATIO 0.8 (1.1-1.5); ALKALINE PHOSPHATASE 89 IU/L (46-116); ANION GAP 13 (8-16); ASPARTATE AMINO TRANSFERASE 16 U/L (10-37); BILIRUBIN,TOTAL 0.9 MG/DL (0.1-1.0); BLOOD UREA NITROGEN 15 MG/DL (7-18); BUN/CREATININE RATIO 15.5 (5.4-32.0); CALCIUM 9.3 MG/DL (8.5-10.1); CHLORIDE 100 MMOL/L (99-107); CREATININE 0.97 MG/DL (0.60-1.10); GLUCOSE 143 MG/DL (70-104); POTASSIUM 4.2 MMOL/L (3.5-5.1); SODIUM 136 MMOL/L (135-145); TOTAL CARBON DIOXIDE 22.6 MMOL/L (24-32); TOTAL PROTEIN 8.4 G/DL (6.4-8.2); eGFR 80 ML/MIN
[2021-04-17] MEDS ORDERED: normal saline 1000ml 1,000 ML IV ONE (01:15)
[2021-04-17 01:16] LABS: ACETAMINOPHEN < 2.0 UG/ML (10-30); ETHANOL < 0.010 GM/DL (0.0-0.010)
[2021-04-17] MEDS ORDERED: piperacillin/tazo 4.5gm/100ml 100 ML IV ONE (01:19)
[2021-04-17 01:54] LABS: URINE AMPHETAMINE SCREEN NEGATIVE (Neg); URINE BARBITUATE SCREEN NEGATIVE (Neg); URINE BENZODIAZEPINES SCREEN NEGATIVE (Neg); URINE CANNABINOID SCREEN POSITIVE (Neg); URINE COCAINE SCREEN NEGATIVE (Neg); URINE METHADONE SCREEN NEGATIVE (Neg); URINE OPIATE SCREEN NEGATIVE (Neg); URINE PHENCYCLIDINE SCREEN NEGATIVE (Neg)
[2021-04-17 02:16] LABS: TOTAL CELLS COUNTED 100
[2021-04-17 02:20] LABS: ANISOCYTOSIS 1+; PLATELET ESTIMATE NORMAL
[2021-04-17] MEDS ORDERED: morphine 4 MG/ML inj SYRINge IV ONE (02:20)
[2021-04-17 02:21] LABS: MICROCYTOSIS 1+; TEAR DROP CELLS 1+
[2021-04-17] MEDS ORDERED: magnesium 2GM in 50ml NS 50 ML IV PRN (04:25)
[2021-04-17] MEDS ORDERED: potassium Cl 20 mEq SR tablet PO PRN ×2 (04:25)
[2021-04-17] MEDS ORDERED: ondansetron/PF 4mg/2ml inj IV PRN (04:25)
[2021-04-17] MEDS ORDERED: acetaminophen 325mg tablet PO PRN (04:25)
[2021-04-17] MEDS ORDERED: magnesium Cl slow-release 64mg tablet PO PRN (04:25)
[2021-04-17] MEDS ORDERED: potassium CL 10mEq/100ml bag 100 ML IV PRN (04:25)
[2021-04-17] MEDS ORDERED: mag hydrox/Alum hydrox/simeth 30ml oral suspension PO PRN (04:25)
[2021-04-17] MEDS: normal saline 1000ml 1,000 ML IV SCH ×2 (04:25→20:00)
[2021-04-17] MEDS ORDERED: magnesium 4gm in 100ml NS 100 ML IV PRN (04:25)
[2021-04-17] MEDS ORDERED: benzonatate 100mg capsule PO PRN (04:30)
[2021-04-17 06:33] LABS: MAGNESIUM 1.8 MG/DL (1.5-2.4)
[2021-04-17 06:51] LABS: CLARITY,URINE CLEAR (Clear); COLOR,URINE YELLOW (Yellow); GLUCOSE, URINE NEGATIVE (Neg); KETONES,URINE NEGATIVE (Neg); NITRITES, URINE NEGATIVE (Neg); OCCULT BLOOD,URINE SMALL (Neg); PROTEIN,URINE NEGATIVE (Neg); UA COLLECTION TYPE URINAL
[2021-04-17 06:52] LABS: LEUKOCYTE ESTERASE ,URINE NEGATIVE (Neg); UROBILINOGEN,URINE 0.2 E.U/dL (0.2-1.0)
[2021-04-17 06:54] LABS: BACTERIA,URINE FEW /HPF (Neg); MUCUS STRANDS NONE SEEN /LPF (Neg); SQUAMOUS EPITHELIAL CELL,UR FEW /LPF (FEW); WBC,URINE 0-4 /HPF (0-4)
[2021-04-17 08:00] VITALS: BP 121/71
[2021-04-17] MEDS ORDERED: CefTRIAXone 2gm/D5W 50ml BAG 50 ML IV SCH (08:00)
[2021-04-17] MEDS: K and/or MAG REPLACEMENT MC SCH ×2 (08:00→20:00)
--- NOTE | 2021-04-17 08:16 | NUR ---
Paged Dr. [facility] RN ext [phone]. RE: Cleopatra Hope. Patient here from ER. Pt has hx of seizure, last episode yesterday. We need to restart his Lamictal and Gabapentin. Also he is requesting for breathing tx
[2021-04-17] MEDS ORDERED: BUPRENORPHINE (Butrans) 10MCG PATCH.TDWK (7-day patch) TD SCH (08:30)
[2021-04-17] MEDS ORDERED: BUPRENORPHINE (Butrans) 10MCG PATCH.TDWK (7-day patch) TP SCH (08:55)
[2021-04-17 09:12] LABS: BASOPHILS # (AUTO) 0.1 X10'3 (0-0.2); BASOPHILS % (AUTO) 0.5 % (0-1); EOSINOPHILS % (AUTO) 0 % (0-6); HEMATOCRIT 39.5 % (42.0-52.0); LYMPHOCYTES # (AUTO) 2.4 X10'3 (1.1-4.8); LYMPHOCYTES % (AUTO) 8.9 % (21-51); MEAN CORPUSCULAR HEMOGLOBIN 26.4 PG (27.0-31.0); MEAN PLATELET VOLUME 7.8 FL (7.4-10.4); MONOCYTES # (AUTO) 2.8 X10'3 (0-0.9); MONOCYTES % (AUTO) 10.4 % (2-12); NEUTROPHILS # (AUTO) 21.7 X10'3 (1.8-7.7); NEUTROPHILS % (AUTO) 80.2 % (42-75); PLATELET COUNT 360 X10'3 (140-440); RED BLOOD COUNT 4.94 X10'6 (4.70-6.10); RED CELL DISTRIBUTION WIDTH 17.9 % (11.5-14.5)
--- NOTE | 2021-04-17 09:24 | NUR ---
Teleneuroconsult just completed.
[2021-04-17] MEDS ORDERED: lamoTRIgine 100mg tablet PO SCH ×2 (09:35→20:00)
[2021-04-17] MEDS ORDERED: albuterol 2.5 MG/3 ML nebule NEB PRN (09:40)
[2021-04-17] MEDS: heparin, porcine 5000 units/ml vial SQ SCH ×3 (10:00→20:26)
[2021-04-17] MEDS: piperacillin/tazo 4.5gm/100ml 100 ML IV SCH ×2 (10:23→16:27)
--- NOTE | 2021-04-17 10:31 | NUR ---
power technician at bedside
[2021-04-17] MEDS: acetaminophen 325mg tablet PO PRN ×2 (10:40→21:22)
[2021-04-17] MEDS: azithromycin/NS 500mg/250ml 250 ML IV SCH (10:40)
[2021-04-17 11:00] VITALS: BP 111/64
--- NOTE | 2021-04-17 13:28 | NUR ---
Paged RT for patient's request for breathing treatment
[2021-04-17] MEDS: ipratropium/albuterol 3ml nebule NEB SCH ×2 (14:40→19:44)
[2021-04-17 14:48] LABS: ANISOCYTOSIS 1+; PLATELET ESTIMATE NORMAL; TOTAL CELLS COUNTED 100
[2021-04-17 14:49] LABS: ELLIPTOCYTES FEW
[2021-04-17] MEDS ORDERED: GADOTERATE MEGLUMINE 7.5 MMOL/15 ML VIAL IV ONE (15:32)
[2021-04-17] MEDS: benzonatate 100mg capsule PO SCH (16:28)
--- NOTE | 2021-04-17 17:17 | NUR ---
Paged provider to let him know buprenorphine order need to be changed, ordered as home med but pt does not have and can not get, med not stocked in pharmacy. Waiting for response
--- NOTE | 2021-04-17 18:14 | NUR ---
Report given to Radha TSE
[2021-04-17] MEDS: guaiFENesin/DM 10ml UD oral syrup PO PRN (19:14)
[2021-04-17 20:00] VITALS: BP 98/71
[2021-04-17] MEDS: gabapentin 100mg capsule PO SCH (20:22)
[2021-04-17] MEDS: lactobacillus rhamnosus 10,000 MMU CELLS/CAPSULE PO SCH (20:25)
[2021-04-17] MEDS: lamoTRIgine 100mg tablet PO SCH (20:25)
[2021-04-17] MEDS ORDERED: temazepam 15mg capsule PO PRN (21:00)
[2021-04-18] VITALS: BP 106/58
[2021-04-18] MEDS: piperacillin/tazo 4.5gm/100ml 100 ML IV SCH ×3 (00:25→17:26)
[2021-04-18] MEDS: benzonatate 100mg capsule PO SCH ×3 (00:26→17:24)
[2021-04-18] MEDS: guaiFENesin/DM 10ml UD oral syrup PO PRN ×2 (03:41→20:05)
--- NOTE | 2021-04-18 06:29 | NUR ---
Patient report given , questions answered and POC reviewed with Mirtha ramos .
[2021-04-18 06:35] LABS: BASOPHILS % (AUTO) 0.3 % (0-1); EOSINOPHILS # (AUTO) 0.1 X10'3 (0-0.9); EOSINOPHILS % (AUTO) 0.7 % (0-6); HEMATOCRIT 38.2 % (42.0-52.0); HEMOGLOBIN 12.4 g/dl (14.0-17.9); LYMPHOCYTES # (AUTO) 1.9 X10'3 (1.1-4.8); LYMPHOCYTES % (AUTO) 12.5 % (21-51); MEAN CORPUSCULAR HEMOGLOBIN 26.4 PG (27.0-31.0); MEAN CORPUSCULAR HGB CONC 32.5 g/dL (33.0-36.5); MEAN CORPUSCULAR VOLUME 81.1 FL (78-98); MEAN PLATELET VOLUME 7.9 FL (7.4-10.4); MONOCYTES # (AUTO) 1.5 X10'3 (0-0.9); MONOCYTES % (AUTO) 9.8 % (2-12); NEUTROPHILS # (AUTO) 11.9 X10'3 (1.8-7.7); NEUTROPHILS % (AUTO) 76.7 % (42-75); PLATELET COUNT 330 X10'3 (140-440); RED BLOOD COUNT 4.71 X10'6 (4.70-6.10); RED CELL DISTRIBUTION WIDTH 18.2 % (11.5-14.5); WHITE BLOOD COUNT 15.5 X10'3 (4.5-11.0)
[2021-04-18 07:02] LABS: ALANINE AMINOTRANSFERASE 14 U/L (12-78); ALBUMIN 2.8 G/DL (3.4-5.0); ALBUMIN/GLOBULIN RATIO 0.7 (1.1-1.5); ALKALINE PHOSPHATASE 78 IU/L (46-116); ANION GAP 10 (8-16); ASPARTATE AMINO TRANSFERASE 10 U/L (10-37); BILIRUBIN,TOTAL 0.4 MG/DL (0.1-1.0); BLOOD UREA NITROGEN 17 MG/DL (7-18); CALCIUM 8.6 MG/DL (8.5-10.1); CHLORIDE 106 MMOL/L (99-107); GLUCOSE 132 MG/DL (70-104); POTASSIUM 3.3 MMOL/L (3.5-5.1); SODIUM 143 MMOL/L (135-145); TOTAL CARBON DIOXIDE 26.6 MMOL/L (24-32); TOTAL PROTEIN 6.9 G/DL (6.4-8.2); eGFR 78 ML/MIN
[2021-04-18] MEDS: ipratropium/albuterol 3ml nebule NEB SCH ×3 (07:26→20:53)
[2021-04-18 08:00] VITALS: BP 113/69
[2021-04-18] MEDS: heparin, porcine 5000 units/ml vial SQ SCH ×3 (08:00→20:00)
[2021-04-18] MEDS: lamoTRIgine 100mg tablet PO SCH ×2 (08:45→20:04)
[2021-04-18] MEDS: PARoxetine 10mg tablet PO SCH (08:47)
[2021-04-18] MEDS: levoTHYROXINE 125mcg tablet PO SCH (08:48)
[2021-04-18] MEDS: acetaminophen 325mg tablet PO PRN (08:48)
[2021-04-18] MEDS: lactobacillus rhamnosus 10,000 MMU CELLS/CAPSULE PO SCH ×2 (08:48→20:04)
[2021-04-18] MEDS: azithromycin/NS 500mg/250ml 250 ML IV SCH (08:49)
[2021-04-18] MEDS: K and/or MAG REPLACEMENT MC SCH ×2 (08:50→20:00)
[2021-04-18] MEDS: normal saline 1000ml 1,000 ML IV SCH ×2 (09:01→22:26)
[2021-04-18 11:00] VITALS: BP 120/69
--- NOTE | 2021-04-18 18:30 | NUR ---
Patient in room [facility] 348. I have received report from ANGELIA TSE and had the opportunity to ask questions and assume patient care.
[2021-04-18 20:00] VITALS: BP 113/51
[2021-04-18] MEDS: morphine 2 MG/ML inj. syringe IV PRN (20:06)
[2021-04-18] MEDS: gabapentin 100mg capsule PO SCH (20:12)
[2021-04-19] VITALS: BP 108/61
[2021-04-19] MEDS: benzonatate 100mg capsule PO SCH ×4 (00:30→23:43)
[2021-04-19] MEDS: piperacillin/tazo 4.5gm/100ml 100 ML IV SCH ×4 (00:30→23:43)
[2021-04-19 06:17] LABS: BASOPHILS # (AUTO) 0.1 X10'3 (0-0.2); BASOPHILS % (AUTO) 0.6 % (0-1); EOSINOPHILS # (AUTO) 0.3 X10'3 (0-0.9); EOSINOPHILS % (AUTO) 2.8 % (0-6); HEMATOCRIT 36.3 % (42.0-52.0); LYMPHOCYTES # (AUTO) 2.1 X10'3 (1.1-4.8); LYMPHOCYTES % (AUTO) 19.3 % (21-51); MEAN CORPUSCULAR HEMOGLOBIN 26.7 PG (27.0-31.0); MEAN CORPUSCULAR HGB CONC 33.2 g/dL (33.0-36.5); MEAN CORPUSCULAR VOLUME 80.4 FL (78-98); MEAN PLATELET VOLUME 7.8 FL (7.4-10.4); MONOCYTES # (AUTO) 1.2 X10'3 (0-0.9); MONOCYTES % (AUTO) 11.1 % (2-12); NEUTROPHILS # (AUTO) 7.1 X10'3 (1.8-7.7); NEUTROPHILS % (AUTO) 66.2 % (42-75); PLATELET COUNT 362 X10'3 (140-440); RED BLOOD COUNT 4.51 X10'6 (4.70-6.10); RED CELL DISTRIBUTION WIDTH 17.7 % (11.5-14.5); WHITE BLOOD COUNT 10.8 X10'3 (4.5-11.0)
[2021-04-19 06:27] LABS: ALANINE AMINOTRANSFERASE 15 U/L (12-78); ALBUMIN 2.6 G/DL (3.4-5.0); ALBUMIN/GLOBULIN RATIO 0.7 (1.1-1.5); ALKALINE PHOSPHATASE 69 IU/L (46-116); ANION GAP 10 (8-16); ASPARTATE AMINO TRANSFERASE 13 U/L (10-37); BILIRUBIN,TOTAL 0.4 MG/DL (0.1-1.0); BLOOD UREA NITROGEN 14 MG/DL (7-18); BUN/CREATININE RATIO 13.6 (5.4-32.0); CALCIUM 8.5 MG/DL (8.5-10.1); CHLORIDE 114 MMOL/L (99-107); CREATININE 1.03 MG/DL (0.60-1.10); GLUCOSE 91 MG/DL (70-104); POTASSIUM 4.6 MMOL/L (3.5-5.1); SODIUM 152 MMOL/L (135-145); TOTAL CARBON DIOXIDE 27.8 MMOL/L (24-32); TOTAL PROTEIN 6.6 G/DL (6.4-8.2); eGFR 75 ML/MIN
--- NOTE | 2021-04-19 06:30 | NUR ---
Problems reprioritized. Patient report given, questions answered & plan of care reviewed with CHU TSE.
--- NOTE | 2021-04-19 06:40 | NUR ---
Patient in room [facility]AN[facility] 348. I have received report from DEDRICK ZHU and had the opportunity to ask questions and assume patient care.
[2021-04-19 07:22] VITALS: BP 115/66
[2021-04-19] MEDS: PARoxetine 10mg tablet PO SCH (07:36)
[2021-04-19] MEDS: lactobacillus rhamnosus 10,000 MMU CELLS/CAPSULE PO SCH ×2 (07:36→20:07)
[2021-04-19] MEDS: lamoTRIgine 100mg tablet PO SCH ×2 (07:37→20:08)
[2021-04-19] MEDS: levoTHYROXINE 125mcg tablet PO SCH (07:37)
[2021-04-19] MEDS: ipratropium/albuterol 3ml nebule NEB SCH ×3 (07:38→19:41)
[2021-04-19] MEDS: morphine 4 MG/ML inj SYRINge IV PRN ×4 (07:42→23:44)
[2021-04-19] MEDS: heparin, porcine 5000 units/ml vial SQ SCH ×2 (07:48→20:00)
[2021-04-19] MEDS: K and/or MAG REPLACEMENT MC SCH ×2 (08:00→18:35)
[2021-04-19] MEDS: guaiFENesin/DM 10ml UD oral syrup PO PRN ×2 (09:53→20:21)
[2021-04-19] MEDS ORDERED: pneumococcal 23-VAL P-sac vacc 25 mcg/0.5ml vial IMVAC ONE (10:00)
[2021-04-19] MEDS ORDERED: FLU VACC QS2021-22(6MOS UP)/PF 60 MCG/0.5 ML SYRINGE IM ONE (10:00)
[2021-04-19 12:00] VITALS: BP 130/79
--- NOTE | 2021-04-19 12:25 | NUR ---
Patient up and ambulating with sitter PCT. Patient denies suicide ideation at this time. Patient states "it's probably from the brain surgery I had. I need to go back to [place] and get my head and neck checked."
[2021-04-19] MEDS: normal saline 1000ml 1,000 ML IV SCH (13:37)
--- NOTE | 2021-04-19 18:24 | NUR ---
Problems reprioritized. Patient report given, questions answered & plan of care reviewed with DEDRICK Pryor.
[2021-04-19 19:25] VITALS: BP 110/68
[2021-04-19] MEDS: gabapentin 100mg capsule PO SCH (20:07)
[2021-04-20] VITALS: BP 119/70
[2021-04-20] MEDS: normal saline 1000ml 1,000 ML IV SCH ×2 (03:55→15:13)
--- NOTE | 2021-04-20 06:15 | NUR ---
Problems reprioritized. Patient report given, questions answered & plan of care reviewed with Roya TSE traveler.
[2021-04-20 06:34] LABS: BASOPHILS # (AUTO) 0.1 X10'3 (0-0.2); BASOPHILS % (AUTO) 0.9 % (0-1); EOSINOPHILS # (AUTO) 0.3 X10'3 (0-0.9); EOSINOPHILS % (AUTO) 3.4 % (0-6); HEMATOCRIT 36.4 % (42.0-52.0); HEMOGLOBIN 12.1 g/dl (14.0-17.9); LYMPHOCYTES # (AUTO) 1.4 X10'3 (1.1-4.8); LYMPHOCYTES % (AUTO) 17.5 % (21-51); MEAN CORPUSCULAR HEMOGLOBIN 26.7 PG (27.0-31.0); MEAN CORPUSCULAR HGB CONC 33.3 g/dL (33.0-36.5); MEAN PLATELET VOLUME 7.7 FL (7.4-10.4); MONOCYTES # (AUTO) 1.1 X10'3 (0-0.9); MONOCYTES % (AUTO) 13.6 % (2-12); NEUTROPHILS # (AUTO) 5.1 X10'3 (1.8-7.7); NEUTROPHILS % (AUTO) 64.6 % (42-75); PLATELET COUNT 363 X10'3 (140-440); RED BLOOD COUNT 4.55 X10'6 (4.70-6.10); RED CELL DISTRIBUTION WIDTH 17.8 % (11.5-14.5); WHITE BLOOD COUNT 7.9 X10'3 (4.5-11.0)
--- NOTE | 2021-04-20 06:45 | NUR ---
Problems reprioritized. Patient report given, questions answered & plan of care reviewed with DEDRICK Villarreal.
[2021-04-20 06:47] LABS: ALANINE AMINOTRANSFERASE 18 U/L (12-78); ALBUMIN 2.7 G/DL (3.4-5.0); ALBUMIN/GLOBULIN RATIO 0.7 (1.1-1.5); ALKALINE PHOSPHATASE 68 IU/L (46-116); ANION GAP 9 (8-16); ASPARTATE AMINO TRANSFERASE 12 U/L (10-37); BILIRUBIN,TOTAL 0.2 MG/DL (0.1-1.0); BLOOD UREA NITROGEN 15 MG/DL (7-18); BUN/CREATININE RATIO 15.2 (5.4-32.0); CALCIUM 8.2 MG/DL (8.5-10.1); CHLORIDE 104 MMOL/L (99-107); CREATININE 0.99 MG/DL (0.60-1.10); GLUCOSE 119 MG/DL (70-104); POTASSIUM 3.7 MMOL/L (3.5-5.1); SODIUM 139 MMOL/L (135-145); TOTAL CARBON DIOXIDE 26.3 MMOL/L (24-32); TOTAL PROTEIN 6.8 G/DL (6.4-8.2); eGFR 78 ML/MIN
[2021-04-20 07:00] VITALS: BP 130/71
[2021-04-20] MEDS: K and/or MAG REPLACEMENT MC SCH ×2 (08:00→20:00)
[2021-04-20] MEDS: heparin, porcine 5000 units/ml vial SQ SCH ×3 (08:00→20:30)
[2021-04-20] MEDS: piperacillin/tazo 4.5gm/100ml 100 ML IV SCH ×3 (08:12→23:53)
[2021-04-20] MEDS: lamoTRIgine 100mg tablet PO SCH ×2 (08:19→20:29)
[2021-04-20] MEDS: levoTHYROXINE 125mcg tablet PO SCH (08:19)
[2021-04-20] MEDS: PARoxetine 10mg tablet PO SCH (08:19)
[2021-04-20] MEDS: lactobacillus rhamnosus 10,000 MMU CELLS/CAPSULE PO SCH ×2 (08:20→20:28)
[2021-04-20] MEDS: benzonatate 100mg capsule PO SCH ×3 (08:20→23:53)
[2021-04-20] MEDS: morphine 4 MG/ML inj SYRINge IV PRN ×3 (08:20→23:54)
[2021-04-20] MEDS: ipratropium/albuterol 3ml nebule NEB SCH ×3 (09:18→20:10)
[2021-04-20 11:00] VITALS: BP 119/68
[2021-04-20] MEDS: guaiFENesin/DM 10ml UD oral syrup PO PRN ×2 (11:19→18:58)
--- NOTE | 2021-04-20 16:45 | NUR ---
PAGER ID: [phone] MESSAGE: Cleopatra Hope #[phone] - Lois with Mental Health is here wanted to talk to you about pt. You can come here if you are able or just Calling here is OK as well. Thank you Cherelle Robbins [phone]
[2021-04-20 18:00] VITALS: BP 113/74
--- NOTE | 2021-04-20 18:42 | NUR ---
Patient in room SHAN[facility] 348. I have received report from DEDRICK Villarreal and had the opportunity to ask questions and assume patient care.
--- NOTE | 2021-04-20 18:47 | NUR ---
Problems reprioritized. Patient report given, questions answered & plan of care reviewed with RAIMUNDO TSE.
[2021-04-20] MEDS: morphine 2 MG/ML inj. syringe IV PRN (19:04)
[2021-04-20] MEDS: gabapentin 100mg capsule PO SCH (20:28)
[2021-04-20 23:36] VITALS: BP 145/82
--- NOTE | 2021-04-21 06:25 | NUR ---
Patient in room [facility]AN[facility] 348. I have received report from DEDRICK Maxwell and had the opportunity to ask questions and assume patient care.
--- NOTE | 2021-04-21 06:38 | NUR ---
Problems reprioritized. Patient report given, questions answered & plan of care reviewed withDEDRICK Myers .
[2021-04-21 06:57] LABS: BASOPHILS % (AUTO) 0.6 % (0-1); EOSINOPHILS % (AUTO) 0.1 % (0-6); HEMATOCRIT 40.4 % (42.0-52.0); HEMOGLOBIN 13.6 g/dl (14.0-17.9); LYMPHOCYTES # (AUTO) 1.1 X10'3 (1.1-4.8); LYMPHOCYTES % (AUTO) 15.9 % (21-51); MEAN CORPUSCULAR HEMOGLOBIN 26.9 PG (27.0-31.0); MEAN CORPUSCULAR HGB CONC 33.6 g/dL (33.0-36.5); MEAN CORPUSCULAR VOLUME 80.1 FL (78-98); MEAN PLATELET VOLUME 7.4 FL (7.4-10.4); MONOCYTES # (AUTO) 0.9 X10'3 (0-0.9); MONOCYTES % (AUTO) 12.7 % (2-12); NEUTROPHILS # (AUTO) 4.8 X10'3 (1.8-7.7); NEUTROPHILS % (AUTO) 70.7 % (42-75); PLATELET COUNT 386 X10'3 (140-440); RED BLOOD COUNT 5.05 X10'6 (4.70-6.10); RED CELL DISTRIBUTION WIDTH 17.6 % (11.5-14.5); WHITE BLOOD COUNT 6.8 X10'3 (4.5-11.0)
[2021-04-21 07:19] LABS: ALANINE AMINOTRANSFERASE 17 U/L (12-78); ALBUMIN 2.8 G/DL (3.4-5.0); ALBUMIN/GLOBULIN RATIO 0.6 (1.1-1.5); ALKALINE PHOSPHATASE 64 IU/L (46-116); ANION GAP 9 (8-16); ASPARTATE AMINO TRANSFERASE 14 U/L (10-37); BILIRUBIN,TOTAL 0.3 MG/DL (0.1-1.0); BLOOD UREA NITROGEN 9 MG/DL (7-18); BUN/CREATININE RATIO 8.5 (5.4-32.0); CALCIUM 8.6 MG/DL (8.5-10.1); CHLORIDE 103 MMOL/L (99-107); CREATININE 1.06 MG/DL (0.60-1.10); GLUCOSE 89 MG/DL (70-104); POTASSIUM 3.7 MMOL/L (3.5-5.1); SODIUM 138 MMOL/L (135-145); TOTAL CARBON DIOXIDE 25.6 MMOL/L (24-32); TOTAL PROTEIN 7.3 G/DL (6.4-8.2); eGFR 73 ML/MIN
[2021-04-21 07:22] VITALS: BP 114/63
[2021-04-21] MEDS: K and/or MAG REPLACEMENT MC SCH (08:00)
[2021-04-21] MEDS ORDERED: amox tr/potassium clavulanate 875/125mg TAB PO SCH (08:15)
[2021-04-21] MEDS: lactobacillus rhamnosus 10,000 MMU CELLS/CAPSULE PO SCH (09:00)
[2021-04-21] MEDS: ipratropium/albuterol 3ml nebule NEB SCH (09:00)
[2021-04-21] MEDS: levoTHYROXINE 125mcg tablet PO SCH (09:01)
[2021-04-21] MEDS: PARoxetine 10mg tablet PO SCH (09:01)
[2021-04-21] MEDS: lamoTRIgine 100mg tablet PO SCH (09:01)
[2021-04-21] MEDS: benzonatate 100mg capsule PO SCH (09:01)
[2021-04-21] MEDS: heparin, porcine 5000 units/ml vial SQ SCH (09:02)
[2021-04-21] MEDS: HYDROcodone/acetaminophen 10/325mg tab PO PRN ×2 (09:03→13:52)
[2021-04-21] MEDS ORDERED: AMOX-580 PO (09:50)
[2021-04-21] MEDS ORDERED: BENZ-69 PO (09:50)
[2021-04-21] MEDS ORDERED: PRED10TA23 PO (09:50)
[2021-04-21] MEDS ORDERED: LAMO150T6 PO (09:50)
[2021-04-21 11:42] VITALS: BP 128/80
--- NOTE | 2021-04-21 15:50 | NUR ---
DC inst provided to pt. No IV. All belongings sent w/pt. WC to [employer].
[2021-04-21] MEDS ORDERED: IBUP-1984 PO (23:52)
== END 2021-04-21 15:50 | disposition home or self-care (01) | DRG 720 ==
LOC: ER 21:27 → ED HOLD 04-17 04:27 → SUR 3N 04-17 07:00
PROVIDERS: ADMIT Internal Medicine; ATTEND Family Medicine
PROC: 4A10X4Z Monitoring of Central Nervous Electrical Activity, External Approach (ICD-10-PCS; principal; 2021-04-17)
PROC: 3E0234Z Introduction of Serum, Toxoid and Vaccine into Muscle, Percutaneous Approach (ICD-10-PCS; 2021-04-19)
DX: A41.9 Sepsis, unspecified organism (principal); J18.9 Pneumonia, unspecified organism; R45.851 Suicidal ideations; F15.90 Other stimulant use, unspecified, uncomplicated; F32.A Depression, unspecified; F41.9 Anxiety disorder, unspecified; G40.909 Epilepsy, unspecified, not intractable, without status epilepticus; I10 Essential (primary) hypertension; G43.909 Migraine, unspecified, not intractable, without status migrainosus; G89.29 Other chronic pain; Z20.822 Contact with and (suspected) exposure to COVID-19; M25.559 Pain in unspecified hip; I25.10 Atherosclerotic heart disease of native coronary artery without angina pectoris; J44.0 Chronic obstructive pulmonary disease with (acute) lower respiratory infection; F17.210 Nicotine dependence, cigarettes, uncomplicated; N40.0 Benign prostatic hyperplasia without lower urinary tract symptoms; I25.2 Old myocardial infarction; Z59.00 Homelessness unspecified; Z79.899 Other long term (current) drug therapy; Z85.841 Personal history of malignant neoplasm of brain; Z23 Encounter for immunization; Z88.5 Allergy status to narcotic agent; Z88.8 Allergy status to other drugs, medicaments and biological substances; Z71.6 Tobacco abuse counseling; Z71.51 Drug abuse counseling and surveillance of drug abuser
CPT/HCPCS: 36415; 70553; 71045; 80053; 80305; 80320; 80329; 81001; 83605; 83735; 84132; 84145; 84443; 85007; 85025; 87040; 87081; 87635; 90732; 94640; 94760; 95816; 97110; 97116; 97162; 97530; 99285; A9575; C9803; G0378; J0456; J1644; J2270; J2543; J7030

== ENCOUNTER 2021-04-21 21:59 | Emergency (ER) | payer MEDICAID ==
[~2021-04-21] VITALS: Ht 177.8 cm; Wt 77.3 kg
[~2021-04-21 21:59] MED LIST changes: +AMOX-580 PO; +BACL10TA2 PO; +BENZ-69 PO; +LAMO150T6 PO; +LEVO125C4 PO; +PRED10TA23 PO
[2021-04-21 22:14] VITALS: BP 147/84
--- NOTE | 2021-04-21 23:12 | NUR ---
CONTACTED SUNDAY CASE # [id number]
[2021-04-21] MEDS ORDERED: ketorolac trometh. 30mg/ml inj. IM ONE (23:20)
[2021-04-21] MEDS ORDERED: IBUP-1984 PO (23:52)
== END 2021-04-22 00:03 | disposition home or self-care (01) ==
LOC: EEVIPCON 22:00 → ER 22:00
DX: R51.9 Headache, unspecified (principal); J44.9 Chronic obstructive pulmonary disease, unspecified; F15.10 Other stimulant abuse, uncomplicated; Z88.5 Allergy status to narcotic agent; Z88.6 Allergy status to analgesic agent; Z79.899 Other long term (current) drug therapy; Y04.8XXA Assault by other bodily force, initial encounter; Y93.89 Activity, other specified; Y92.89 Other specified places as the place of occurrence of the external cause; Y99.8 Other external cause status
CPT/HCPCS: 70486; 96372; 99284; J1885

== ENCOUNTER 2021-06-27 06:53 | Emergency (ER) | payer MEDICAID ==
[~2021-06-27] VITALS: Ht 177.8 cm; Wt 79.5 kg
[~2021-06-27 06:53] MED LIST changes: -BACL10TA2 PO; -FLO0.4C PO; -LAMO100T PO; -LEVO125C4 PO
[2021-06-27 07:44] LABS: BASOPHILS # (AUTO) 0.1 X10'3 (0-0.2); BASOPHILS % (AUTO) 0.8 % (0-1); EOSINOPHILS # (AUTO) 0.1 X10'3 (0-0.9); EOSINOPHILS % (AUTO) 1.5 % (0-6); HEMATOCRIT 38.6 % (42.0-52.0); HEMOGLOBIN 12.7 g/dl (14.0-17.9); LYMPHOCYTES # (AUTO) 0.7 X10'3 (1.1-4.8); LYMPHOCYTES % (AUTO) 7.7 % (21-51); MEAN CORPUSCULAR HEMOGLOBIN 26.4 PG (27.0-31.0); MEAN CORPUSCULAR VOLUME 80.1 FL (78-98); MEAN PLATELET VOLUME 7.2 FL (7.4-10.4); MONOCYTES # (AUTO) 0.3 X10'3 (0-0.9); MONOCYTES % (AUTO) 3.5 % (2-12); NEUTROPHILS # (AUTO) 7.8 X10'3 (1.8-7.7); NEUTROPHILS % (AUTO) 86.5 % (42-75); PLATELET COUNT 369 X10'3 (140-440); RED BLOOD COUNT 4.82 X10'6 (4.70-6.10); RED CELL DISTRIBUTION WIDTH 16.1 % (11.5-14.5)
[2021-06-27 07:57] LABS: ALANINE AMINOTRANSFERASE 27 U/L (12-78); ALBUMIN 3.8 G/DL (3.4-5.0); ALKALINE PHOSPHATASE 83 IU/L (46-116); ANION GAP 8 (8-16); ASPARTATE AMINO TRANSFERASE 37 U/L (10-37); BILIRUBIN,TOTAL 0.4 MG/DL (0.1-1.0); BLOOD UREA NITROGEN 28 MG/DL (7-18); CALCIUM 8.2 MG/DL (8.5-10.1); CHLORIDE 104 MMOL/L (99-107); CREATININE 1.12 MG/DL (0.60-1.10); GLUCOSE 130 MG/DL (70-104); POTASSIUM 4.5 MMOL/L (3.5-5.1); SODIUM 140 MMOL/L (135-145); TOTAL CARBON DIOXIDE 27.8 MMOL/L (24-32); TOTAL PROTEIN 7.7 G/DL (6.4-8.2); eGFR 68 ML/MIN
[2021-06-27 08:00] LABS: LIPASE < 50 U/L (73-393)
--- NOTE | 2021-06-27 08:15 | NUR ---
Pt was up to void. Pt gave a urine sample. Urine was clear josue.
[2021-06-27 08:58] LABS: CLARITY,URINE CLOUDY (Clear); COLOR,URINE YELLOW (Yellow); GLUCOSE, URINE NEGATIVE (Neg); KETONES,URINE NEGATIVE (Neg); LEUKOCYTE ESTERASE ,URINE NEGATIVE (Neg); NITRITES, URINE NEGATIVE (Neg); OCCULT BLOOD,URINE LARGE (Neg); PROTEIN,URINE NEGATIVE (Neg); UROBILINOGEN,URINE 0.2 E.U/dL (0.2-1.0)
[2021-06-27 08:59] LABS: UA COLLECTION TYPE VOIDED
[2021-06-27 09:11] LABS: SQUAMOUS EPITHELIAL CELL,UR FEW /LPF (FEW)
[2021-06-27 09:18] LABS: BACTERIA,URINE FEW /HPF (Neg); WBC,URINE 0-4 /HPF (0-4)
[2021-06-27 09:21] LABS: RBC,URINE 50-100 /HPF (0-2)
[2021-06-27 09:23] LABS: CAL OXALATE CRYSTALS 2+ /HPF (NEGATIVE); MUCUS STRANDS MODERATE /LPF (Neg)
[2021-06-27 09:36] VITALS: BP 126/66
== END 2021-06-27 09:40 | disposition home or self-care (01) ==
LOC: ER 06:53
DX: J20.9 Acute bronchitis, unspecified (principal); R25.2 Cramp and spasm; R10.31 Right lower quadrant pain; R05.9 Cough, unspecified; R04.2 Hemoptysis; I25.10 Atherosclerotic heart disease of native coronary artery without angina pectoris; I25.2 Old myocardial infarction; J44.9 Chronic obstructive pulmonary disease, unspecified; F41.9 Anxiety disorder, unspecified; F32.9 Major depressive disorder, single episode, unspecified; F15.90 Other stimulant use, unspecified, uncomplicated; Z86.69 Personal history of other diseases of the nervous system and sense organs; Z98.890 Other specified postprocedural states; Z59.00 Homelessness unspecified; Z88.5 Allergy status to narcotic agent; Z88.6 Allergy status to analgesic agent; Z88.8 Allergy status to other drugs, medicaments and biological substances; Z79.2 Long term (current) use of antibiotics; Z79.899 Other long term (current) drug therapy
CPT/HCPCS: 36415; 74176; 80053; 81001; 83690; 84484; 85025; 99284

== ENCOUNTER 2024-03-05 10:42 | Emergency (ER) | payer MEDICAID ==
[~2024-03-05] VITALS: Ht 177.8 cm; Wt 75.1 kg
[~2024-03-05 10:42] MED LIST changes: -BENZ-69 PO; +[UNRECOGNIZED DRUG - CODE] PO
[2024-03-05 11:28] LABS: BASOPHILS # (AUTO) 0.1 X10'3 (0-0.2); BASOPHILS % (AUTO) 1.4 % (0-1); EOSINOPHILS # (AUTO) 0.1 X10'3 (0-0.9); HEMATOCRIT 43.2 % (42.0-52.0); HEMOGLOBIN 14.2 g/dl (14.0-17.9); LYMPHOCYTES # (AUTO) 1.3 X10'3 (1.1-4.8); MEAN CORPUSCULAR HEMOGLOBIN 27.9 PG (27.0-31.0); MEAN CORPUSCULAR VOLUME 84.6 FL (78-98); MEAN PLATELET VOLUME 7.7 FL (7.4-10.4); MONOCYTES # (AUTO) 0.5 X10'3 (0-0.9); MONOCYTES % (AUTO) 5.5 % (2-12); NEUTROPHILS # (AUTO) 7.7 X10'3 (1.8-7.7); NEUTROPHILS % (AUTO) 79.1 % (42-75); PLATELET COUNT 334 X10'3 (140-440); RED CELL DISTRIBUTION WIDTH 18.1 % (11.5-14.5); WHITE BLOOD COUNT 9.8 X10'3 (4.5-11.0)
[2024-03-05 11:53] LABS: ALBUMIN 3.8 G/DL (3.4-5.0); ANION GAP 10 (8-16); BLOOD UREA NITROGEN 15 MG/DL (7-18); CALCIUM 8.7 MG/DL (8.5-10.1); CHLORIDE 107 MMOL/L (99-107); CREATININE 0.88 MG/DL (0.60-1.10); GLUCOSE 120 MG/DL (70-104); POTASSIUM 3.1 MMOL/L (3.5-5.1); SODIUM 141 MMOL/L (135-145); TOTAL CARBON DIOXIDE 24.4 MMOL/L (24-32); eCRCL 94 ML/MIN; eGFR 89 ML/MIN
[2024-03-05 12:14] LABS: BILIRUBIN,URINE NEGATIVE (Neg); CLARITY,URINE SLIGHTLY CLOUDY (Clear); COLOR,URINE YELLOW (Yellow); GLUCOSE, URINE NEGATIVE (Neg); KETONES,URINE NEGATIVE (Neg); LEUKOCYTE ESTERASE ,URINE NEGATIVE (Neg); NITRITES, URINE NEGATIVE (Neg); OCCULT BLOOD,URINE MODERATE (Neg); PROTEIN,URINE TRACE mg/dl (Neg); UA COLLECTION TYPE VOIDED; UROBILINOGEN,URINE 0.2 E.U/dL (0.2-1.0)
[2024-03-05 12:46] LABS: BACTERIA,URINE FEW /HPF (Neg); HYALINE CASTS 0-3 /LPF (NEGATIVE); MUCUS STRANDS MANY /LPF (Neg); SQUAMOUS EPITHELIAL CELL,UR FEW /LPF (FEW); TRANSITIONAL EPI CELLS,URINE FEW /HPF
[2024-03-05 12:47] LABS: RBC,URINE 0-2 /HPF (0-2)
[2024-03-05] MEDS: HYDROcodone/acetaminophen 10/325mg tab PO ONE (13:01)
[2024-03-05 13:31] LABS: C-REACTIVE PROTEIN 0.96 MG/DL (0.0-0.5)
[2024-03-05 14:43] VITALS: BP 140/75; PULSE 98; RESP 17; TEMP 99.1; O2SAT 98
== END 2024-03-05 14:45 | disposition home or self-care (01) ==
LOC: ER 10:43
DX: M54.9 Dorsalgia, unspecified (principal); F11.29 Opioid dependence with unspecified opioid-induced disorder; I25.10 Atherosclerotic heart disease of native coronary artery without angina pectoris; I25.2 Old myocardial infarction; J45.909 Unspecified asthma, uncomplicated; J44.9 Chronic obstructive pulmonary disease, unspecified; E07.9 Disorder of thyroid, unspecified; F41.9 Anxiety disorder, unspecified; F32.A Depression, unspecified; Z88.8 Allergy status to other drugs, medicaments and biological substances; Z88.5 Allergy status to narcotic agent; Z79.2 Long term (current) use of antibiotics; Z79.899 Other long term (current) drug therapy; Z79.52 Long term (current) use of systemic steroids; Z98.890 Other specified postprocedural states; Z59.00 Homelessness unspecified; F15.90 Other stimulant use, unspecified, uncomplicated
CPT/HCPCS: 36415; 80048; 81001; 83605; 84145; 85025; 85651; 86140; 87040; 99283